=== PATIENT | female | born 1935 | race Caucasian/White ===

== ENCOUNTER 2017-01-04 13:27 | Observation (INO) | payer MEDICARE, OTHER ==
[2017-01-04] VITALS (9 sets, daily range): BP systolic 114–171; BP diastolic 41–76; PULSE 62–78; RESP 16–22; Ht 149.9 cm; Wt 58.4 kg
[~2017-01-04] VITALS: Ht 149.9 cm; Wt 58.4 kg
[~2017-01-04 13:27] MED LIST: AMLO5TAB4 PO; ASPI-664 PO; CARV12.598 PO; LISI30TA47 PO
[2017-01-04] MEDS ORDERED: NACL 0.9% 3 ML SYG IV SCH (16:30)
[2017-01-04] MEDS ORDERED: CEFAZOLIN 2 GM/50 ML (PMX) 50 ML IVPB PRN (17:00)
[2017-01-04] MEDS ORDERED: CEFAZOLIN 2 GM in SOD CHLORIDE 0.9% 50 ML IVPB ONE (17:00)
--- NOTE | 2017-01-04 17:07 | HP ---
Date/Time of Note Date/Time of Note DATE: 01/04/17 TIME: 17:03 Assessment/Plan VTE Prophylaxis VTE Prophylaxis Intervention: SCD's Lines/Catheters IV [facility]from [facility] Saline Lock Assessment/Plan Assessment/Plan 81 yo F with dysphagia from prior strokes with resultant PEG placement. 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 Pt had a PEG which became dislodged within the past 6 mos. PEG was pulled and patient was transiently on TPN. This past Monday pt had a PEG placed endoscopically. Procedure course uncomplicated. Last night pt's daughter/ caregiver noticed some fullness at the top of PEG site concerning for balloon translocation. This morning she noticed the balloon partially visualized. No PEG malfunction appreciated, no drainage from PEG site. pt aphasic thus unable to provide PMHx, PSHx, Soc Hx, ROS, Fam Hx PMH/Family/Social Social History Smoking Status: Never smoker Exam/Review of Systems Vital Signs Vitals Vital Signs Date Time Temp Pulse Resp B/P Pulse Ox O2 Delivery O2 Flow Rate FiO2 01/04/17 15:11 98.1 61 18 154/57 94 Exam Exam nad, aphasic MMM EOMI lungs clear no mrg abd with PEG tube with partially exposed balloon, no surrounding drainage or purulence no rashes no edema Medications Medications Current Medications Enoxaparin Sodium (Lovenox) 40 mg DAILY SC ; Start 01/05/17 at 09:00 Amlodipine Besylate (Norvasc) 5 mg DAILY PO ; Start 01/05/17 at 09:00 Aspirin (Halfprin) 81 mg DAILY PO ; Start 01/05/17 at 09:00 Carvedilol (Coreg) 12.5 mg BID PO ; Start 01/04/17 at 21:00 Lisinopril 30 mg 30 mg DAILY PO ; Start 01/05/17 at 09:00 Cefazolin Sodium/ Dextrose (Ancef 2 Gm/50 ml (Pmx)) 50 ml @ 100 mls/hr OC PRN IVPB ONCALL TO GI LAB; Start 01/04/17 at 17:00; Stop 01/05/17 at 16:59 SCAR GRIGGS MD Jan 04, 2017 17:07
[2017-01-04] MEDS ORDERED: PROPOFOL 20 ML ONE (18:00)
[2017-01-04] MEDS ORDERED: hydrALAzine 20 MG INJ IV PRN (18:00)
[2017-01-04] MEDS ORDERED: LABETALOL HCL 20MG INJ IV PRN (18:00)
--- NOTE | 2017-01-04 18:16 | OPPN ---
Date/Time of Note Date/Time of Note DATE: 01/04/17 TIME: 18:09 Proc Note GI Procedure Date 01/04/17 Pre-procedure Diagnosis * Malfunctioning GT Post-procedure Diagnosis Impression: * Old GT almost completely out, not salvageable * Uneventful new PEG. Fr#20 GT Plan: * Restart feedings * Ostomy care to closure of previous GT site . Procedure Performed: Other (EGD + PEG) Surgeon HÉCTOR BRYANT MD Coat Maker none Anesthesia Type: MAC Anesthesiologist: FABIO HORN MD Tourniquet Time none EBL none Transfusion required none Biopsy 1: none Grafts/Implants none Tubes/Drains none Complication(s) none Pt Condition post procedure: stable Disposition: PACU Indications: other (malfunctioning GT) Procedure Description After informed consent, with the patient/relatives understanding the procedure, its indications, potential risks and complications, including but not limited to : Allergic reaction, bleeding, perforation or infection, and all after all pertinent questions were answered to the patient's satisfaction, patient/ relative signed witnessed informed consent. Following this, premedication was administered slowly IV push under care of cardiovascular respiratory monitoring with pulse oximetry, and automatic blood pressure, and patient monitor. Once to sedative effect was achieved the patient was placed in the left lateral decubitus, the panendoscope was introduced and advanced under visual control. Careful examination of the upper gastrointestinal tract, both on insertion as well as withdrawal of the instrument disclosed following findings: ESOPHAGUS: The mucosa of the entire esophagus was carefully examined and showed the following findings: [The mucosa appears within normal limits. There is no evidence of esophagitis, varices, neoplasm or stricture. No hiatal hernia identified.] Stomach: Upon entrance to the stomach air was insufflated, the gastric christy distended normally. The mucosa of the fundus, body and antrum of the stomach was carefully examined both head-on and on retroflexion, and showed the following findings: Old GT almost completely out of stomach in GT trach, not salvageable. Removed without problems. Otherwise the mucosa appears within normal limits with no abnormalities. There is no evidence of gastritis, ulcers or neoplasm.] Pylorus: The pylorus was carefully examined and showed the following findings: [The pylorus appears patent and within normal limits, with no evidence of gastric outlet obstruction.] Duodenum: The duodenal mucosa was carefully examined in the duodenal bulb as well as the second portion of the duodenum and showed the following findings: [The mucosa appears unremarkable with no evidence of duodenitis, ulcer or neoplasm.] The instrument was then brought back to the stomach and the anterior wall mid- body was identified by transillumination and "finger indentation", this area was then marked in the anterior wall of the abdomen, it was cleansed with Betadine and infiltrated with Xylocaine 1%. Following this a trocar needle was introduced into the gastric lumen under visual control with the endoscope, once in the gastric lumen a guide wire was advanced and secured with a polypectomy snare, at this point the endoscope was withdrawn bringing the guidewire out through the patient's mouth. Following this a Japanese #20 gastrostomy tube was introduced over the guidewire, with the Bismark-Shahid technique without difficulty , a small incision was performed in the skin to allow easy passage of the G-tube , once the position of the gastrostomy was confirmed, the external stopper and connectors were installed, and a clean dressing applied. The patient tolerated the procedure well and was transferred out of the endoscopy suite awake, and in good condition to continue recovery under observation, feedings will start in the next 12-24 hours and the discharge in the care will be instituted. Copies To: CC: HÉCTOR BRYANT MD, MORDO MD Jan 04, 2017 18:16
--- NOTE | 2017-01-04 18:27 | CONS ---
Date/Time of Note Date/Time of Note DATE: 01/04/17 TIME: 18:16 Assessment/Plan Assessment/Plan Additional Assessment/Plan Assessment: * Displaced gastrostomy tube/nonsalvageable * Dysphagia/enteral feedings required * Post CVA with expressive aphasia Plan: * Proceed with new PEG insertion and removal of old gastrostomy tube * Previews ostomy site care * CT abdomen to rule out wall abscess Consultation Date/Type/Reason Admit Date/Time Jan 04, 2017 at 14:26 Date of Consultation: Jan 04, 2017 Type of Consultation: GI Reason for Consultation Malfunctioning G-tube Hx of Present Illness 1-year-old female post CVA with expressive aphasia and G-tube dependent. Brought into the hospital with malfunctioning G-tube the G-tube has been replaced recently in an expanding ostomy site and the tube has migrated out and is currently in the GT track. It appears not salvageable. Options were reviewed with the patient's daughter and recommendation is to move all gastrostomy tube on the outside to heal and place new gastrostomy tube in a different site. The procedure was explained in detail to the patient's daughter POA including risks benefits and alternatives and she is agreeable to proceed. Unobtainable Past Medical History Post CVA/aphasia Gastrostomy tube dependent Past Surgical History Post PEG Family History Significant Family History: no pertinent family hx Social History Alcohol Use: none Smoking Status: Never smoker Drug Use: none Exam/Review of Systems Vital Signs Vitals Vital Signs Date Time Temp Pulse Resp B/P Pulse Ox O2 Delivery O2 Flow Rate FiO2 01/04/17 17:37 98.0 62 17 171/72 97 Room Air Exam PHYSICAL EXAMINATION: GENERAL: Well developed, well nourished, alert, expressive aphasia, in no acute distress SKIN: No lesions, no stigmata chronic liver disease, no evidence of bleeding diathesis LYMPHATIC: No palpable lymphadenopathy. HEAD: Normocephalic, atraumatic, no tenderness. EYES: Pupils equal reactive to light and accommodation, full extraocular movements, sclera clear, non-icteric, no discharge. EARS/NOSE AND THROAT: Ears normal, nose normal, oropharynx normal, oral membranes well hydrated without lesions. NECK: Supple, no masses, thyroid normal, JVP within normal limits, carotids normal without bruits. CHEST: Inspection within normal limits. CARDIOVASCULAR: Heart: Regular rate and rhythm, no murmurs, gallops or rubs. Peripheral pulses present within normal limits, no cyanosis, clubbing or edemas. No pulsatile abdominal mass RESPIRATORY: Lungs clear to auscultation and percussion, no wheezing, no rubs GASTROINTESTINAL AND LIVER: Abdomen: G-tube has migrated into the GT track and is not salvageable. Otherwise abdomen soft, non tenderness, non-distended, no hernias, no masses, no organomegaly, no ascites, no guarding, no rebound tenderness, normoactive bowel sounds. Rectal: Deferred. GENITOURINARY: [Female genitalia within normal limits.] Medications Medications Current Medications Enoxaparin Sodium (Lovenox) 40 mg DAILY SC ; Start 01/05/17 at 09:00 Amlodipine Besylate (Norvasc) 5 mg DAILY PO ; Start 01/05/17 at 09:00 Aspirin (Halfprin) 81 mg DAILY PO ; Start 01/05/17 at 09:00 Carvedilol (Coreg) 12.5 mg BID PO ; Start 01/04/17 at 21:00 Lisinopril 30 mg 30 mg DAILY PO ; Start 01/05/17 at 09:00 Cefazolin Sodium/ Dextrose (Ancef 2 Gm/50 ml (Pmx)) 50 ml @ 100 mls/hr OC PRN IVPB ONCALL TO GI LAB; Start 01/04/17 at 17:00; Stop 01/05/17 at 16:59 HÉCTOR BRYANT MD Jan 04, 2017 18:27
[2017-01-04] MEDS ORDERED: BARIUM SULF 2% 450 ML BTL (BERRY SMOOTHIE) PO ONE (18:30)
[2017-01-05] MEDS: CEFAZOLIN 1 GM/50 ML (PMX) 50 ML IVPB SCH ×3 (00:05→15:00)
[2017-01-05 02:03] VITALS: BP 145/66; RESP 18
[2017-01-05 07:52] VITALS: BP 137/64; RESP 20
[2017-01-05] MEDS ORDERED: ASPIRIN (EC) 81 MG TAB PO SCH (09:00)
[2017-01-05] MEDS ORDERED: LISINOPRIL 10 MG TAB PO SCH (09:00)
[2017-01-05] MEDS ORDERED: INFLUENZA VIRUS VACCINE 0.5 ML SYG IM* ONE (09:00)
[2017-01-05] MEDS ORDERED: AMLODIPINE 5 MG TAB PO SCH (09:00)
[2017-01-05] MEDS ORDERED: ENOXAPARIN 40 MG/0.4 ML SYG SC SCH (09:00)
[2017-01-05 11:20] LABS: CREATININE 0.59 mg/dl (0.44-1.00)
[2017-01-05] MEDS ORDERED: SOD CHLORIDE 0.9% 100 ML ONE (11:59)
[2017-01-05] MEDS ORDERED: IODIXANOL LOCM 100 ML BTL ONE (11:59)
[2017-01-05 14:00] VITALS: BP 164/69; RESP 16
--- NOTE | 2017-01-05 14:25 | RADRPT ---
PROCEDURE: CT Abdomen and Pelvis with contrast. CLINICAL INDICATION: Abdominal wall abscess. TECHNIQUE: Multiple contiguous axial CT images of the abdomen and pelvis were obtained following t he administration of 90 cc of Visipaque 320. Coronal and sagittal reconstructions were also perform ed. CTDIvol (mGy): 11.74; Total Exam DLP (mGy-cm): 628.31. One or more of the following dose reduction techniques were utilized: - Automated exposure control. - Adjustment of the mA and/or kV according to patient size. - Use of iterative reconstruction technique. COMPARISON: CT abdomen/pelvis 02/07/2013. FINDINGS: Limited imaging of the lower thorax demonstrates cardiomegaly with small bilateral pleural effusions and basilar atelectatic changes. The liver and spleen are homogeneous in enhancement. The gallbladder, pancreas and adrenal glands a re unremarkable. The kidneys are symmetric in size and enhancement. There is no hydronephrosis or abnormal perinephr ic inflammation. There are no ureteral stones. The abdominal aorta is normal in caliber. Atherosclerotic calcification is present. There is no meche aortic / retroperitoneal lymphadenopathy. An old percutaneous gastrostomy tube site is seen within the right paramidline abdominal wall. Soft tissue thickening and stranding within the immediate surrounding subcutaneous soft tissues is observ ed. A new percutaneous gastrostomy tube is in place within the left para midline upper abdominal wal l. The gastrostomy tube balloon is not flush against the abdominal wall, however located within the gastric lumen at the level of the antropyloric junction. The stomach is collapsed. The small intesti kirsten are unremarkable. Diverticulosis of the distal colon is observed. A moderate volume of stool is seen throughout the colon. The appendix is normal. There is no ascites. There is no free intra-abdom inal air or intra-abdominal fluid collection. The bladder, uterus and adnexa are unremarkable. There is no free pelvic fluid. There is no pelvic sidewall or inguinal lymphadenopathy. Old right inferior and superior pubic rami fractures are identified. Degenerative changes are seen t hroughout the spine. The abdominal wall is thin with considerable diastasis of the abdominis rectus muscles. IMPRESSION: Mild inflammatory changes of the old percutaneous gastrostomy tube tract of the right paramidline up per abdomen. There is no evidence of organized fluid collection surrounding the gastrostomy tube sit e. New percutaneous gastrostomy tube of the left paramidline upper abdomen. The balloon is located with in the gastric lumen at the level of the antropyloric junction. Diverticulosis. No evidence of diverticulitis. RPTAT: AAQQ .Chandrika Kelley MD, MD Date Time Electronically viewed and signed by .Chandrika Kelley MD, MD on 01/05/2017 14:24 .T/
--- NOTE | 2017-01-05 14:41 | PN ---
Date/Time of Note Date/Time of Note DATE: 01/05/17 TIME: 14:39 Assessment/Plan VTE Prophylaxis VTE Prophylaxis Intervention: SCD's Lines/Catheters IV Catheter Type (from Nrs): Saline Lock Urinary Cath still in place: No Assessment/Plan Assessment/Plan 81 yo F with dysphagia from prior strokes with resultant PEG placement transferred from OSH for dislodged PEG. PEG replaced 10.4. CT ordered by GI to eval for abscess from period PEG was dislodged likely dc in AM if ok with GI cont home meds GI to see for revision cont home meds likely dc after GI intervention thus pt admitted under observation status Subjective 24 Hr Interval Summary Free Text/Dictation PEG replaced yesterday by GI Exam/Review of Systems Vital Signs Vitals Vital Signs Date Time Temp Pulse Resp B/P Pulse Ox O2 Delivery O2 Flow Rate FiO2 01/05/17 07:52 98.1 79 20 137/64 95 01/04/17 18:36 Room Air Intake and Output 01/04/17 01/04/17 01/05/17 15:00 23:00 07:00 Intake Total 100 ml Balance 100 ml Exam nad no mrg lungs clear wearing abd binder no rashes Results Result Diagram: 01/05/17 1053 Results 24 hrs Laboratory Tests Test 01/05/17 10:53 Blood Urea Nitrogen 21 H Creatinine 0.59 Medications Medications Current Medications Enoxaparin Sodium (Lovenox) 40 mg DAILY SC ; Start 01/05/17 at 09:00 Amlodipine Besylate (Norvasc) 5 mg DAILY PO ; Start 01/05/17 at 09:00 Aspirin (Halfprin) 81 mg DAILY PO ; Start 01/05/17 at 09:00 Carvedilol (Coreg) 12.5 mg BID PO Last administered on 01/04/17t 21:01; Admin Dose 12.5 MG; Start 01/04/17 at 21:00 Lisinopril 30 mg 30 mg DAILY PO ; Start 01/05/17 at 09:00 Cefazolin Sodium/ Dextrose 50 ml @ 100 mls/hr OC PRN IVPB ONCALL TO GI LAB; Start 01/04/17 at 17:00; Stop 01/05/17 at 16:59 Cefazolin Sodium (Ancef 1 Gm/50 ml (Pmx)) 50 ml @ 100 mls/hr Q8 IVPB Last administered on 01/05/17t 06:11; Admin Dose 100 MLS/HR; Start 01/04/17 at 23:30 SCAR GRIGGS MD Jan 05, 2017 14:41
--- NOTE | 2017-01-05 15:59 | PDOCDIS ---
Discharge Instructions CONDITION Patient Condition: Stable HOME CARE INSTRUCTIONS: Special Diet: tube feeding FOLLOW UP/APPOINTMENTS Follow-up Plan Follow up with your regular doctor as scheduled. Here is the info for the parts manager/stomach doctor you saw in the hospital Dr Gregorio Greene Office Address [address] [address] Office SCAR GRIGGS MD Jan 05, 2017 15:59
--- NOTE | 2017-01-05 15:59 | DS ---
Date/Time of Note Date/Time of Note DATE: 01/05/17 TIME: 15:59 Discharge Summary Admission/Discharge Info Admit Date/Time Jan 04, 2017 at 14:26 Discharge Date/Time Discharge Diagnosis dislodged PEG tube Patient Condition: Stable Consults GI Procedures 10.4: EGD and PEG replacement done by GI. 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 Pt had a PEG which became dislodged within the past 6 mos. PEG was pulled and patient was transiently on TPN. This past Monday pt had a PEG placed endoscopically. Procedure course uncomplicated. Last night pt's daughter/ caregiver noticed some fullness at the top of PEG site concerning for balloon translocation. This morning she noticed the balloon partially visualized. No PEG malfunction appreciated, no drainage from PEG site. pt aphasic thus unable to provide PMHx, PSHx, Soc Hx, ROS, Fam Hx Hospital Course PEG replaced by GI. Feeds resumed. CT without abscess. Home Meds Reported Medications Amlodipine Besylate* (Norvasc*) 5 Mg Tablet, 5 MG PO DAILY, TAB 12/12/15 Carvedilol* (Coreg*) 12.5 Mg Tablet, 12.5 MG PO BID, #60 TAB 12/12/15 Aspirin* (Aspirin* EC) 81 Mg Tablet.dr, 81 MG PO DAILY, TAB 12/12/15 Lisinopril* (Lisinopril*) 30 Mg Tablet, 30 MG PO DAILY, #30 TAB 12/12/15 Follow-up Plan Follow up with your regular doctor as scheduled. Here is the info for the reservation manager/stomach doctor you saw in the hospital Dr Héctor Greene Office Address [id number] [address] Office Primary Care Provider Carolyn Moore Time spent on discharge: > 30 minutes Pending Labs Laboratory Tests Test 01/05/17 10:53 Blood Urea Nitrogen 21mg/dl (7-20) Creatinine 0.59mg/dl (0.44-1.00) Copies To: CC: HÉCTOR GREENE MD, ELLEN MD Jan 05, 2017 15:59
[2017-01-05] MEDS ORDERED: CEPH500C PO (16:23)
[2017-01-06] MEDS ORDERED: FURO-110 PO (17:02)
[2017-01-06] MEDS ORDERED: LISI20TA11 PO (17:02)
[2017-01-06] MEDS ORDERED: BUSP10TA2 PO (17:03)
[2017-01-06] MEDS ORDERED: OMEP20CA16 PO (17:03)
== END 2017-01-05 18:55 | disposition home or self-care (01) ==
LOC: INTOOBSV 14:26 → PP2 14:26
PROVIDERS: ADMIT Internal Medicine; ATTEND Internal Medicine
DX: K94.23 Gastrostomy malfunction (principal); T85.528A Displacement of other gastrointestinal prosthetic devices, implants and grafts, initial encounter; Y83.3 Surgical operation with formation of external stoma as the cause of abnormal reaction of the patient, or of later complication, without mention of misadventure at the time of the procedure; Y92.9 Unspecified place or not applicable; K57.90 Diverticulosis of intestine, part unspecified, without perforation or abscess without bleeding; I69.391 Dysphagia following cerebral infarction; I69.320 Aphasia following cerebral infarction; R13.10 Dysphagia, unspecified; Y73.3 Surgical instruments, materials and gastroenterology and urology devices (including sutures) associated with adverse incidents; Z23 Encounter for immunization
CPT/HCPCS: 43246; 74177; 82565; 84520; 90686; G0378; J0690; J1650; Q9967; 99217

== ENCOUNTER 2017-01-06 12:10 | Inpatient (IN) | payer MEDICARE, OTHER ==
[~2017-01-06] VITALS: Ht 144.8 cm; Wt 58.5 kg
[~2017-01-06 12:10] MED LIST changes: +CEPH500C PO
[2017-01-06] MEDS ORDERED: PIPER-TAZO 3.375 GM IV (PMX) 100 ML IVPB STA (16:48)
[2017-01-06] MEDS ORDERED: VANCOMYCIN 1 GM (PMX) 250 ML IVPB STA (16:48)
[2017-01-06] MEDS ORDERED: ONDANSETRON 4 MG INJ IV PRN (17:00)
[2017-01-06] MEDS ORDERED: ACETAMINOPHEN 325 MG TAB PO PRN (17:00)
[2017-01-06] MEDS ORDERED: LISI20TA11 PO (17:02)
[2017-01-06] MEDS ORDERED: FURO-110 PO (17:02)
[2017-01-06] MEDS ORDERED: OMEP20CA16 PO (17:03)
[2017-01-06] MEDS ORDERED: BUSP10TA2 PO (17:03)
--- NOTE | 2017-01-06 17:12 | HP ---
Date/Time of Note Date/Time of Note DATE: 01/06/17 TIME: 17:08 Assessment/Plan VTE Prophylaxis VTE Prophylaxis Intervention: SCD's Assessment/Plan Assessment/Plan 81 yo F with PEG for dysphagia from stoke here 10.4-5 for PEG replacement. Aperture from former PEG site with sanguinous drainage. PLAN GI and gen surg evals Suspect erythematous patch 2/2 irritation from previous PEG. 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 10.4 PEG pulled and new one placed endoscopically. Pt discharged 10.5 (yesterday). Today pt brought back in. Daughter states that she went to use new PEG this morning to give pt breakfast. Noted after she started pushing in AM tube feeds they appeared to be coming out of prior PEG opening. Thus she brought pt back to the ER. pt aphasic thus unable to provide PMHx, PSHx, Soc Hx, ROS, Fam Hx Exam/Review of Systems Vital Signs Vitals Vital Signs Date Time Temp Pulse Resp B/P Pulse Ox O2 Delivery O2 Flow Rate FiO2 01/06/17 12:13 99.1 79 14 130/60 96 Exam Exam nad EOMI MMM no mrg lungs clear abd with 2 cm aperture from previous PEG with 1 cm surrounding flat patch of erythema, mild dark sanguinous discharge from site no edema no rashes labs pending SCAR GRIGGS MD Jan 06, 2017 17:11
--- NOTE | 2017-01-06 17:28 | RADRPT ---
PROCEDURE: XR Chest. CLINICAL INDICATION: Abdominal pain. TECHNIQUE: Single frontal view. COMPARISON: 12/08/2013. FINDINGS: The lungs are clear. The heart is mildly enlarged. There is calcification in the aorta consistent with atherosclerosis. There is no pleural effusion or pneumothorax. There is an old healed fracture of the surgical neck of the right humerus with deformity. IMPRESSION: 1. Mild cardiomegaly. 2. Atherosclerosis. 3. Clear lungs. 4. Old healed fracture of the proximal right humerus. RPTAT: QQ .Marques Tuttle MD, MD Date Time Electronically viewed and signed by .Marques Tuttle MD, on 01/06/2017 17:28 .R/
[2017-01-06] MEDS ORDERED: NACL 0.9% 3 ML SYG IV SCH (17:30)
[2017-01-06 17:35] LABS: BASOPHILS % 0.6 % (0.0-2.0); EOSINOPHILS # 0.1 10^3/ul (0.0-0.5); EOSINOPHILS % 0.9 % (0.0-7.0); HEMATOCRIT 43.2 % (37.0-47.0); HEMOGLOBIN 14.5 g/dl (12.0-16.0); LYMPHOCYTES # 1.4 10^3/ul (0.8-2.9); LYMPHOCYTES % 19.7 % (15.0-51.0); MEAN CORPUSCULAR HEMOGLOBIN 33.3 pg (29.0-33.0); MEAN CORPUSCULAR HGB CONC 33.6 g/dl (32.0-37.0); MEAN CORPUSCULAR VOLUME 99.3 fl (82.0-101.0); MEAN PLATELET VOLUME 11.1 fl (7.4-10.4); MONOCYTE # 0.7 10^3/ul (0.3-0.9); MONOCYTES % 9.8 % (0.0-11.0); NEUTROPHIL # 4.7 10^3/ul (1.6-7.5); NEUTROPHILS % 68.7 % (39.0-77.0); PLATELET COUNT 184 10^3/UL (140-415); RED BLOOD COUNT 4.35 10^6/ul (4.20-5.40); RED CELL DISTRIBUTION WIDTH 12.9 % (11.5-14.5); WHITE BLOOD COUNT 6.9 10^3/ul (4.8-10.8)
[2017-01-06 17:48] LABS: ALBUMIN 4.1 g/dl (3.3-4.9); ALBUMIN/GLOBULIN RATIO 1.05; BILIRUBIN,INDIRECT 0.7 mg/dl (0-1.1); BILIRUBIN,TOTAL 0.7 mg/dl (0.2-1.3); CALCIUM 10.7 mg/dl (8.4-10.2); CREATININE 0.62 mg/dl (0.44-1.00); POTASSIUM 4.5 mmol/L (3.5-5.1)
--- NOTE | 2017-01-06 18:17 | ERA ---
ER Documentation Chief Complaint Date/Time DATE: 01/06/17 TIME: 18:14 Chief Complaint Milk coming out of old G-Tube hole with feeding. Reporting pain at site. HPI Patient is an 81-year-old female with stroke and hypertension who presents for a leaking G-tube. The patient had a G-tube placed prior and the "hole was too big". The G-tube was recently removed and a new G-tube was placed in a different location however there is still significant leakage from the old G- tube site. The patient has pain around the area and redness as well. The patient has had no fevers per the daughter. Upon review of old medical records this is the patient's seventh visit to the ER since 2012. Dr. Greene was the upholsterer inside involved in the case. ROS All systems reviewed and are negative except as per history of present illness. Medications Home Meds Reported Medications Furosemide* (Lasix*) 20 Mg Tablet, 20 MG PO DAILY, TAB 01/06/17 Lisinopril* (Lisinopril*) 20 Mg Tablet, 20 MG PO DAILY, #30 TAB 01/06/17 Amlodipine Besylate* (Norvasc*) 5 Mg Tablet, 5 MG PO DAILY, TAB 12/12/15 Carvedilol* (Coreg*) 12.5 Mg Tablet, 12.5 MG PO BID, #60 TAB 12/12/15 Aspirin* (Aspirin* EC) 81 Mg Tablet.dr, 81 MG PO DAILY, TAB 12/12/15 Discontinued Reported Medications Omeprazole* (Omeprazole*) 20 Mg Capsule.dr, 20 MG PO DAILY, #30 CAP 01/06/17 Buspirone Hcl* (Buspirone Hcl*) 10 Mg Tab, 15 MG PO QHS, TAB 01/06/17 Lisinopril* (Lisinopril*) 30 Mg Tablet, 30 MG PO DAILY, #30 TAB 12/12/15 Discontinued Scripts Cephalexin* (Cephalexin*) 500 Mg Capsule, 500 MG PO Q12 for 7 Days, #14 CAP Prov:SCAR GRIGGS MD 01/05/17 Allergies Allergies: Coded Allergies: No Known Drug Allergies (Verified Allergy, Unknown, 01/06/17) PMhx/Soc History of Surgery: Yes (gtube placement 2011 ) Anesthesia Reaction: No Hx Neurological Disorder: Yes (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 Neck: Full range of motion..~ No meningismus. Resp: Clear to auscultation bilaterally Cardio: Regular rate and rhythm, no murmurs Abd: Generalized tenderness to palpation with significant tenderness around the previous G-tube site, there is redness around the previous G-tube site was significant leakage Skin: Redness around the previous G-tube site which is actively leaking gastric fluid at this time Back: No midline or flank tenderness Ext: No cyanosis, or edema Neur: Awake but nonverbal at baseline Result Diagram: 01/06/17 1645 01/06/17 1645 Results 24 hrs Laboratory Tests Test 01/06/17 16:45 01/06/17 17:00 White Blood Count 6.910^3/ul Red Blood Count 4.3510^6/ul Hemoglobin 14.5g/dl Hematocrit 43.2% Mean Corpuscular Volume 99.3fl Mean Corpuscular Hemoglobin 33.3pg Mean Corpuscular Hemoglobin Concent 33.6g/dl Red Cell Distribution Width 12.9% Platelet Count 32946^3/UL Mean Platelet Volume 11.1fl Neutrophils % 68.7% Lymphocytes % 19.7% Monocytes % 9.8% Eosinophils % 0.9% Basophils % 0.6% Nucleated Red Blood Cells % 0.0/100WBC Neutrophils # 4.710^3/ul Lymphocytes # 1.410^3/ul Monocytes # 0.710^3/ul Eosinophils # 0.110^3/ul Basophils # 0.010^3/ul Nucleated Red Blood Cells # 0.010^3/ul Sodium Level 143mmol/L Potassium Level 4.5mmol/L Chloride Level 106mmol/L Carbon Dioxide Level 28mmol/L Anion Gap 14 Blood Urea Nitrogen 28mg/dl Creatinine 0.62mg/dl Glucose Level 100mg/dl Calcium Level 10.7mg/dl Total Bilirubin 0.7mg/dl Direct Bilirubin 0.00mg/dl Indirect Bilirubin 0.7mg/dl Aspartate Amino Transf (AST/SGOT) 31IU/L Alanine Aminotransferase (ALT/SGPT) 28IU/L Alkaline Phosphatase 91IU/L Total Protein 8.0g/dl Albumin 4.1g/dl Globulin 3.90g/dl Albumin/Globulin Ratio 1.05 Lipase 27U/L Lactic Acid Level 1.2mmol/L Current Medications Medications (Trade) Dose Ordered Sig/Laila Route PRN Reason Start Time Stop Time Status Last Admin Dose Admin Ondansetron HCl (Zofran Inj) 4 mg BRIDGE ORDER PRN IV NAUSEA AND/OR VOMITING 01/06/17 17:00 01/07/17 16:59 Acetaminophen 650 mg 650 mg ER BRIDGE PRN PO MILD PAIN/FEVER 01/06/17 17:00 01/07/17 16:59 Vancomycin HCl 250 ml @ 125 mls/hr ONCE STAT IVPB 01/06/17 16:48 01/06/17 18:47 Piperacillin Sod/ Tazobactam Sod (Zosyn 3.375gm/ 100 ml (Pmx)) 100 ml @ 200 mls/hr ONCE STAT IVPB 01/06/17 16:48 01/06/17 17:17 DC 01/06/17 17:22 IV Flush (NS 3 ml) 3 ml PER PROTOCOL IV 01/06/17 17:30 Amlodipine Besylate (Norvasc) 5 mg DAILY PO 01/07/17 09:00 UNV Aspirin (Halfprin) 81 mg DAILY PO 01/07/17 09:00 UNV Buspirone HCl (Buspar) 15 mg QHS PO 01/06/17 21:00 UNV Carvedilol (Coreg) 12.5 mg BID PO 01/06/17 21:00 UNV Furosemide (Lasix) 20 mg DAILY PO 01/07/17 09:00 UNV Lisinopril (Zestril) 20 mg DAILY PO 01/07/17 09:00 UNV Miscellaneous Information 20 mg DAILY PO 01/07/17 09:00 UNV Procedures/MDM EKG read by me: Rate/Rhythm: Regular rate and rhythm at a normal rate Intervals: Normal Impression: No evidence of ischemia or arrhythmia Chest x-ray shows clear lungs per radiology. Patient is an 81-year-old female who presents with cellulitis around a previous G-tube site. The patient also has significant G-tube site leakage likely given the size of the G-tube that was previously in place. Unfortunately when the patient is being fed to the new G-tube the feeds are coming out through the previous hole. I do believe there is a cellulitis as well but at this point I doubt sepsis. The patient was given broad-spectrum antibiotics and initial lactic acid was normal. The patient will be admitted to the care of Dr. Griggs from the panel team and Dr. Griggs is planning to consult Dr. Greene. The patient may require wound care while admitted to the hospital. Departure Diagnosis: Primary Impression: Cellulitis Qualified Code: L03.90 - Cellulitis, unspecified cellulitis site Additional Impression: Leaking percutaneous endoscopic gastrostomy (PEG) tube Condition: KHADRA Palencia MD Jan 06, 2017 18:17
[2017-01-06 19:03] VITALS: BP 151/70; RESP 18
[2017-01-06 20:00] VITALS: BP 146/63; RESP 20
[2017-01-06] MEDS ORDERED: BUSPIRONE 10 MG TAB PO SCH (21:00)
[2017-01-06 23:44] VITALS: Ht 144.8 cm; Wt 58.5 kg
[2017-01-07 01:48] VITALS: BP 139/62; RESP 20
[2017-01-07] MEDS ORDERED: LANSOPRAZOLE 30 MG CAP GTB SCH (06:00)
[2017-01-07] MEDS ORDERED: PANTOPRAZOLE (EC) 40 MG TAB PO SCH (06:00)
[2017-01-07 08:10] VITALS: BP 146/64; RESP 20
[2017-01-07] MEDS ORDERED: NON-FORMULARY/PATIENT OWN MED (Omeprazole* 20 MG) PO SCH (09:00)
[2017-01-07] MEDS: AMLODIPINE 5 MG TAB PO SCH (10:11)
[2017-01-07] MEDS: FUROSEMIDE 20 MG TAB PO SCH (10:11)
[2017-01-07] MEDS: LISINOPRIL 20 MG TAB PO SCH (10:12)
[2017-01-07] MEDS: ASPIRIN (EC) 81 MG TAB PO SCH (10:13)
--- NOTE | 2017-01-07 11:19 | CONS ---
Date/Time of Note Date/Time of Note DATE: 01/07/17 TIME: 11:14 Assessment/Plan Assessment/Plan Additional Assessment/Plan Assessment: Post removal of malfunctioning gastrostomy tube Persistent leakage from ostomy site Probably mild local cellulitis Post placement of new gastrostomy tube History of CVA Expressive aphasia Dysphagia/GT enteral nutrition dependent Plan: Continue present regimen with enteral feedings at a continuous rate Add Reglan to improve gastric emptying Continue observation if no closure by Monday consider surgical approach Subjective: Course reviewed with nursing staff Patient interviewed and examined All labs, imaging and other results reviewed The patient feels well Leakage appears to be decreasing somewhat The ostomy site also appears to be closing We will continue present regimen with continuous enteral feeding at a low rate We will add Reglan to improve gastric emptying Exam: General: well developed, well nourished, alert and oriented x3 , in no acute distress Skin: No lesions, no stigmata chronic liver disease, no evidence of bleeding diathesis Lymphatic: No palpable lymphadenopathy HEENT: No lesions Cardiovascular: Heart: Regular rate and rhythm, no murmurs, gallops or rubs. Peripheral pulses present within normal limits, no cyanosis, clubbing or edemas. No pulsatile abdominal mass Respiratory: Lungs clear to auscultation and percussion, no wheezing, no rubs Gastrointestinal and Liver: Abdomen: Old ostomy site improving comparison to previous evaluation. New GT in place and in good condition. Abdomen soft, non tender, non-distended, no hernias, no masses, no organomegaly, no ascites, no guarding, no rebound tenderness, normoactive bowel sounds. Extremities: No cyanosis, clubbing, or edema. Diagnostic Studies: Available data and images were reviewed personally. See reports. Significant results and findings are addressed here or in the assessment and plan. Consultation Date/Type/Reason Admit Date/Time Social History Smoking Status: Never smoker Exam/Review of Systems Vital Signs Vitals Vital Signs Date Time Temp Pulse Resp B/P Pulse Ox O2 Delivery O2 Flow Rate FiO2 01/07/17 08:10 97.7 74 20 146/64 97 Results Result Diagram: 01/06/17 1645 01/06/17 1645 Results 24 hrs Laboratory Tests Test 01/06/17 16:45 01/06/17 17:00 01/06/17 20:10 01/06/17 22:38 White Blood Count 6.9 Red Blood Count 4.35 Hemoglobin 14.5 Hematocrit 43.2 Mean Corpuscular Volume 99.3 Mean Corpuscular Hemoglobin 33.3 H Mean Corpuscular Hemoglobin Concent 33.6 Red Cell Distribution Width 12.9 Platelet Count 184 Mean Platelet Volume 11.1 H Neutrophils % 68.7 Lymphocytes % 19.7 Monocytes % 9.8 Eosinophils % 0.9 Basophils % 0.6 Nucleated Red Blood Cells % 0.0 Neutrophils # 4.7 Lymphocytes # 1.4 Monocytes # 0.7 Eosinophils # 0.1 Basophils # 0.0 Nucleated Red Blood Cells # 0.0 Sodium Level 143 Potassium Level 4.5 Chloride Level 106 Carbon Dioxide Level 28 Anion Gap 14 Blood Urea Nitrogen 28 H Creatinine 0.62 Glucose Level 100 Calcium Level 10.7 H Total Bilirubin 0.7 Direct Bilirubin 0.00 Indirect Bilirubin 0.7 Aspartate Amino Transf (AST/SGOT) 31 Alanine Aminotransferase (ALT/SGPT) 28 Alkaline Phosphatase 91 Total Protein 8.0 Albumin 4.1 Globulin 3.90 H Albumin/Globulin Ratio 1.05 Lipase 27 Lactic Acid Level 1.2 0.8 0.7 Medications Medications Current Medications Amlodipine Besylate (Norvasc) 5 mg DAILY PO Last administered on 01/07/17 10: 11; Admin Dose 5 MG; Start 01/07/17 at 09:00 Aspirin (Halfprin) 81 mg DAILY PO Last administered on 01/07/17 10:13; Admin Dose 81 MG; Start 01/07/17 at 09:00 Buspirone HCl (Buspar) 15 mg QHS PO ; Start 01/06/17 at 21:00 Carvedilol (Coreg) 12.5 mg BID PO Last administered on 01/07/17 10:12; Admin Dose 12.5 MG; Start 01/06/17 at 21:00 Furosemide (Lasix) 20 mg DAILY PO Last administered on 01/07/17 10:11; Admin Dose 20 MG; Start 01/07/17 at 09:00 Lisinopril (Zestril) 20 mg DAILY PO Last administered on 01/07/17 10:12; Admin Dose 20 MG; Start 01/07/17 at 09:00 Lansoprazole (Prevacid) 30 mg DAILY@06 GTB Last administered on 01/07/17 06:26 ; Admin Dose 30 MG; Start 01/07/17 at 06:00 HÉCTOR BRYANT MD Jan 07, 2017 11:19
--- NOTE | 2017-01-07 11:36 | PN ---
Date/Time of Note Date/Time of Note DATE: 01/07/17 TIME: 11:33 Assessment/Plan VTE Prophylaxis VTE Prophylaxis Intervention: SCD's Lines/Catheters IV [facility] Saline Lock Urinary Cath still in place: No Assessment/Plan Assessment/Plan 81 yo F with PEG for dysphagia from stoke here 10.4-5 for PEG replacement. Aperture from former PEG site with sanguinous drainage. PLAN GI following gen surg eval pending Suspect erythematous patch 2/2 irritation from previous PEG. Cont Keflex, no compelling indication for broader abx at this time cont home meds Subjective 24 Hr Interval Summary Free Text/Dictation Per nurse, tube feeds still leaking out of previous PEG aperture Exam/Review of Systems Vital Signs Vitals Vital Signs Date Time Temp Pulse Resp B/P Pulse Ox O2 Delivery O2 Flow Rate FiO2 01/07/17 08:10 97.7 74 20 146/64 97 Exam nad no mrg lungs clear new PEG in place, old PEG aperture unchanged from yesterday no rashes no edema Results Result Diagram: 01/06/17 1645 01/06/17 1645 Results 24 hrs Laboratory Tests Test 01/06/17 16:45 01/06/17 17:00 01/06/17 20:10 01/06/17 22:38 White Blood Count 6.9 Red Blood Count 4.35 Hemoglobin 14.5 Hematocrit 43.2 Mean Corpuscular Volume 99.3 Mean Corpuscular Hemoglobin 33.3 H Mean Corpuscular Hemoglobin Concent 33.6 Red Cell Distribution Width 12.9 Platelet Count 184 Mean Platelet Volume 11.1 H Neutrophils % 68.7 Lymphocytes % 19.7 Monocytes % 9.8 Eosinophils % 0.9 Basophils % 0.6 Nucleated Red Blood Cells % 0.0 Neutrophils # 4.7 Lymphocytes # 1.4 Monocytes # 0.7 Eosinophils # 0.1 Basophils # 0.0 Nucleated Red Blood Cells # 0.0 Sodium Level 143 Potassium Level 4.5 Chloride Level 106 Carbon Dioxide Level 28 Anion Gap 14 Blood Urea Nitrogen 28 H Creatinine 0.62 Glucose Level 100 Calcium Level 10.7 H Total Bilirubin 0.7 Direct Bilirubin 0.00 Indirect Bilirubin 0.7 Aspartate Amino Transf (AST/SGOT) 31 Alanine Aminotransferase (ALT/SGPT) 28 Alkaline Phosphatase 91 Total Protein 8.0 Albumin 4.1 Globulin 3.90 H Albumin/Globulin Ratio 1.05 Lipase 27 Lactic Acid Level 1.2 0.8 0.7 Medications Medications Current Medications Amlodipine Besylate (Norvasc) 5 mg DAILY PO Last administered on 01/07/17 10: 11; Admin Dose 5 MG; Start 01/07/17 at 09:00 Aspirin (Halfprin) 81 mg DAILY PO Last administered on 01/07/17 10:13; Admin Dose 81 MG; Start 01/07/17 at 09:00 Buspirone HCl (Buspar) 15 mg QHS PO ; Start 01/06/17 at 21:00 Carvedilol (Coreg) 12.5 mg BID PO Last administered on 01/07/17 10:12; Admin Dose 12.5 MG; Start 01/06/17 at 21:00 Furosemide (Lasix) 20 mg DAILY PO Last administered on 01/07/17 10:11; Admin Dose 20 MG; Start 01/07/17 at 09:00 Lisinopril (Zestril) 20 mg DAILY PO Last administered on 01/07/17 10:12; Admin Dose 20 MG; Start 01/07/17 at 09:00 Lansoprazole (Prevacid) 30 mg DAILY@06 GTB Last administered on 01/07/17 06:26 ; Admin Dose 30 MG; Start 01/07/17 at 06:00 Metoclopramide HCl (Reglan) 10 mg Q6 IV ; Start 01/07/17 at 12:00 SCAR GRIGGS MD Jan 07, 2017 11:36
[2017-01-07] MEDS: METOCLOPRAMIDE 10 MG INJ IV SCH ×2 (12:42→18:19)
[2017-01-07 14:06] VITALS: BP 138/60; RESP 18
--- NOTE | 2017-01-07 19:47 | CONS ---
Date/Time of Note Date/Time of Note DATE: 01/07/17 TIME: 19:28 Assessment/Plan Assessment/Plan Chief Complaint/Hosp Course 1. Leaking GCF: minimal drainage with continuous feeding; stoma decreasing in size -continuous tf instead of bolus feeding from now. -may consider surgical closure if does not improve however, appears to be closing with minimal drainage 2. Peristomal maceration -local care for stoma 3. Dysphagia with TF -as above -aspiration precautions 4. History of cva -supportive and medical optimization Thank you. Patient seen and examined in collaboration with Dr. Darvin Alfaro. Problems: Consultation Date/Type/Reason Admit Date/Time Date of Consultation: Jan 07, 2017 Type of Consultation: Surgical Reason for Consultation Leaking GCF Referring Provider: SCAR GRIGGS MD Hx of Present Illness Sarah Barth is an 81 yo woman with multiple comorbidities, particularly dysphagia with PEG placement. She was recently admitted for dislodged PEG. On January 04 she had a new PEG placed endoscopically. After discharge however, she was brought back to the ED due to a large leak from the previous gastrocutaneous fistula. The leak occurred after her regular bolus feeding in the morning. There were no reports of fevers, chills, sob, congested cough, vomiting, diarrhea, dysuria, abdominal pain. General surgery was asked to evaluate. Constitutional: No chills, No febrile Eyes: No visual change ENT: No congestion Respiratory: No cough, No shortness of breath Cardiovascular: No chest pain Gastrointestinal: other (as above), No vomiting Genitourinary: No dysuria Musculoskeletal: No back pain Skin: No bruising, No rash Neurologic: No focal-weakness Endocrine: No polyuria Psychological: No anxiety, No confusion Past Medical History CVA DYSPHAGIA Past Surgical History peg placement x3 Family History Significant Family History: no pertinent family hx Social History Alcohol Use: none Smoking Status: Never smoker Drug Use: none Exam/Review of Systems Vital Signs Vitals Vital Signs Date Time Temp Pulse Resp B/P Pulse Ox O2 Delivery O2 Flow Rate FiO2 01/07/17 14:06 98.1 72 18 138/60 96 Exam Constitutional: alert, other (nonverbal, tracks) Psych: nl mood/affect Head: atraumatic, normocephalic Eyes: nl lids, nl sclera ENMT: mucosa pink and moist, nl nasal mucosa & septum Neck: non-tender, supple Respiratory: normal air movement Cardiovascular: regular rate and rhythm Gastrointestinal: non-tender, other (previous gcf with min drainage (non-milky) ; peristoma with erythema and macerated skin; peg), soft Genitourinary - Female: nl external genitalia Musculoskeletal: nl extremities to inspection Extremities: normal pulses Neurological: No nl strength (right sided weakness) Skin: other Results Result Diagram: 01/06/17 1645 01/06/17 1645 Results 24 hrs Laboratory Tests Test 01/06/17 20:10 01/06/17 22:38 Lactic Acid Level 0.8 0.7 Medications Medications Current Medications Amlodipine Besylate (Norvasc) 5 mg DAILY PO Last administered on 01/07/17 10: 11; Admin Dose 5 MG; Start 01/07/17 at 09:00 Aspirin (Halfprin) 81 mg DAILY PO Last administered on 01/07/17 10:13; Admin Dose 81 MG; Start 01/07/17 at 09:00 Carvedilol (Coreg) 12.5 mg BID PO Last administered on 01/07/17 10:12; Admin Dose 12.5 MG; Start 01/06/17 at 21:00 Furosemide (Lasix) 20 mg DAILY PO Last administered on 01/07/17 10:11; Admin Dose 20 MG; Start 01/07/17 at 09:00 Lisinopril (Zestril) 20 mg DAILY PO Last administered on 01/07/17 10:12; Admin Dose 20 MG; Start 01/07/17 at 09:00 Metoclopramide HCl (Reglan) 10 mg Q6 IV Last administered on 01/07/17 18:19; Admin Dose 10 MG; Start 01/07/17 at 12:00 OMID VACA NP Jan 07, 2017 19:38
[2017-01-07 20:44] VITALS: BP 156/72; RESP 16
[2017-01-07 22:25] VITALS: BP 149/73; RESP 16
[2017-01-08] MEDS: METOCLOPRAMIDE 10 MG INJ IV SCH ×4 (00:02→17:49)
[2017-01-08 02:31] VITALS: BP 131/63; RESP 16
[2017-01-08 05:23] LABS: BASOPHILS % 0.9 % (0.0-2.0); EOSINOPHILS # 0.1 10^3/ul (0.0-0.5); HEMATOCRIT 33.5 % (37.0-47.0); HEMOGLOBIN 11.1 g/dl (12.0-16.0); LYMPHOCYTES # 1.3 10^3/ul (0.8-2.9); MEAN CORPUSCULAR HEMOGLOBIN 32.8 pg (29.0-33.0); MEAN CORPUSCULAR HGB CONC 33.1 g/dl (32.0-37.0); MEAN CORPUSCULAR VOLUME 99.1 fl (82.0-101.0); MEAN PLATELET VOLUME 10.6 fl (7.4-10.4); MONOCYTE # 0.5 10^3/ul (0.3-0.9); MONOCYTES % 10.5 % (0.0-11.0); NEUTROPHIL # 2.7 10^3/ul (1.6-7.5); NEUTROPHILS % 58.2 % (39.0-77.0); PLATELET COUNT 160 10^3/UL (140-415); RED BLOOD COUNT 3.38 10^6/ul (4.20-5.40); WHITE BLOOD COUNT 4.7 10^3/ul (4.8-10.8)
[2017-01-08 05:51] LABS: CALCIUM 9.6 mg/dl (8.4-10.2); CREATININE 0.62 mg/dl (0.44-1.00); POTASSIUM 3.7 mmol/L (3.5-5.1)
[2017-01-08 07:35] VITALS: BP 136/63; RESP 18
[2017-01-08] MEDS: ASPIRIN (EC) 81 MG TAB PO SCH (09:23)
[2017-01-08] MEDS: FUROSEMIDE 20 MG TAB PO SCH (09:24)
[2017-01-08] MEDS: AMLODIPINE 5 MG TAB PO SCH (09:25)
[2017-01-08] MEDS: LISINOPRIL 20 MG TAB PO SCH (09:25)
--- NOTE | 2017-01-08 13:44 | PN ---
Date/Time of Note Date/Time of Note DATE: 01/08/17 TIME: 13:42 Assessment/Plan VTE Prophylaxis VTE Prophylaxis Intervention: SCD's Lines/Catheters IV Catheter Type (from [facility]): Saline Lock Urinary Cath still in place: No Assessment/Plan Assessment/Plan 81 yo F with PEG for dysphagia from stoke here 10.4-5 for PEG replacement. Aperture from former PEG site with sanguinous drainage now improving/closing up on its own. PLAN GI and gen surg following Suspect erythematous patch 2/2 irritation from previous PEG. Cont Keflex, no compelling indication for broader abx at this time cont home meds dc when ok'd by consultants Subjective 24 Hr Interval Summary Free Text/Dictation Pt daughter and nurse all affirm tube feeds now working well through new PEG. Aperture continues to get smaller Exam/Review of Systems Vital Signs Vitals Vital Signs Date Time Temp Pulse Resp B/P Pulse Ox O2 Delivery O2 Flow Rate FiO2 01/08/17 07:35 97.9 64 18 136/63 94 Intake and Output 01/07/17 01/07/17 01/08/17 15:00 23:00 07:00 Output Total 200 ml Balance -200 ml Exam nad no mrg lungs clear abd soft no rashes previous PEG site continues to get smaller, minimal dark drainage appreciated Results Result Diagram: 01/08/17 0502 01/08/17 0502 Results 24 hrs Laboratory Tests Test 01/08/17 05:02 White Blood Count 4.7 #L Red Blood Count 3.38 #L Hemoglobin 11.1 #L Hematocrit 33.5 #L Mean Corpuscular Volume 99.1 Mean Corpuscular Hemoglobin 32.8 Mean Corpuscular Hemoglobin Concent 33.1 Red Cell Distribution Width 13.0 Platelet Count 160 Mean Platelet Volume 10.6 H Neutrophils % 58.2 Lymphocytes % 27.0 Monocytes % 10.5 Eosinophils % 3.0 Basophils % 0.9 Nucleated Red Blood Cells % 0.0 Neutrophils # 2.7 Lymphocytes # 1.3 Monocytes # 0.5 Eosinophils # 0.1 Basophils # 0.0 Nucleated Red Blood Cells # 0.0 Sodium Level 143 Potassium Level 3.7 Chloride Level 110 Carbon Dioxide Level 30 Anion Gap 7 L Blood Urea Nitrogen 28 H Creatinine 0.62 Glucose Level 113 Calcium Level 9.6 Medications Medications Current Medications Amlodipine Besylate (Norvasc) 5 mg DAILY PO Last administered on 01/08/17 09: 25; Admin Dose 5 MG; Start 01/07/17 at 09:00 Aspirin (Halfprin) 81 mg DAILY PO Last administered on 01/08/17 09:23; Admin Dose 81 MG; Start 01/07/17 at 09:00 Carvedilol (Coreg) 12.5 mg BID PO Last administered on 01/08/17 09:23; Admin Dose 12.5 MG; Start 01/06/17 at 21:00 Furosemide (Lasix) 20 mg DAILY PO Last administered on 01/08/17 09:24; Admin Dose 20 MG; Start 01/07/17 at 09:00 Lisinopril (Zestril) 20 mg DAILY PO Last administered on 01/08/17 09:25; Admin Dose 20 MG; Start 01/07/17 at 09:00 Metoclopramide HCl (Reglan) 10 mg Q6 IV Last administered on 01/08/17 12:38; Admin Dose 10 MG; Start 01/07/17 at 12:00 SCAR GRIGGS MD Jan 08, 2017 13:44
--- NOTE | 2017-01-08 14:00 | PN ---
Date/Time of Note Date/Time of Note DATE: 01/08/17 TIME: 13:55 Assessment/Plan VTE Prophylaxis VTE Prophylaxis Intervention: SCD's Lines/Catheters IV C[facility]ter Type (from [facility] Saline Lock Urinary Cath still in place: No Assessment/Plan Chief Complaint/Hosp Course Assessment: Post removal of malfunctioning gastrostomy tube Persistent leakage from ostomy site/significant improvement Probably mild local cellulitis/improved Post placement of new gastrostomy tube History of CVA Expressive aphasia Dysphagia/GT enteral nutrition dependent Plan: Continue present regimen with enteral feedings at a continuous rate Continue Reglan to improve gastric emptying Continue observation if no closure by Monday consider surgical approach Subjective: Course reviewed with nursing staff Patient interviewed and examined All labs, imaging and other results reviewed The patient appears comfortable Old ostomy site leakage has substantially decreased Old ostomy site appears to be healing nicely We will continue present regimen until complete closure and then may go back to bolus feeding at home Exam: General: well developed, well nourished, alert and oriented x3 , in no acute distress Skin: No lesions, no stigmata chronic liver disease, no evidence of bleeding diathesis Lymphatic: No palpable lymphadenopathy HEENT: No lesions Cardiovascular: Heart: Regular rate and rhythm, no murmurs, gallops or rubs. Peripheral pulses present within normal limits, no cyanosis, clubbing or edemas. No pulsatile abdominal mass Respiratory: Lungs clear to auscultation and percussion, no wheezing, no rubs Gastrointestinal and Liver: Abdomen: Old ostomy site improved. New GT in place. Abdomen soft, non tenderness, not distended, no hernias, no masses, no organomegaly, no ascites, no guarding, no rebound tenderness, normoactive bowel sounds. Extremities: No cyanosis, clubbing, or edema. Diagnostic Studies: Available data and images were reviewed personally. See reports. Significant results and findings are addressed here or in the assessment and plan. Problems: Exam/Review of Systems Vital Signs Vitals Vital Signs Date Time Temp Pulse Resp B/P Pulse Ox O2 Delivery O2 Flow Rate FiO2 01/08/17 07:35 97.9 64 18 136/63 94 Intake and Output 01/07/17 01/07/17 01/08/17 15:00 23:00 07:00 Output Total 200 ml Balance -200 ml Results Result Diagram: 01/08/17 0502 01/08/17 0502 Results 24 hrs Laboratory Tests Test 01/08/17 05:02 White Blood Count 4.7 #L Red Blood Count 3.38 #L Hemoglobin 11.1 #L Hematocrit 33.5 #L Mean Corpuscular Volume 99.1 Mean Corpuscular Hemoglobin 32.8 Mean Corpuscular Hemoglobin Concent 33.1 Red Cell Distribution Width 13.0 Platelet Count 160 Mean Platelet Volume 10.6 H Neutrophils % 58.2 Lymphocytes % 27.0 Monocytes % 10.5 Eosinophils % 3.0 Basophils % 0.9 Nucleated Red Blood Cells % 0.0 Neutrophils # 2.7 Lymphocytes # 1.3 Monocytes # 0.5 Eosinophils # 0.1 Basophils # 0.0 Nucleated Red Blood Cells # 0.0 Sodium Level 143 Potassium Level 3.7 Chloride Level 110 Carbon Dioxide Level 30 Anion Gap 7 L Blood Urea Nitrogen 28 H Creatinine 0.62 Glucose Level 113 Calcium Level 9.6 Medications Medications Current Medications Amlodipine Besylate (Norvasc) 5 mg DAILY PO Last administered on 01/08/17 09: 25; Admin Dose 5 MG; Start 01/07/17 at 09:00 Aspirin (Halfprin) 81 mg DAILY PO Last administered on 01/08/17 09:23; Admin Dose 81 MG; Start 01/07/17 at 09:00 Carvedilol (Coreg) 12.5 mg BID PO Last administered on 01/08/17 09:23; Admin Dose 12.5 MG; Start 01/06/17 at 21:00 Furosemide (Lasix) 20 mg DAILY PO Last administered on 01/08/17 09:24; Admin Dose 20 MG; Start 01/07/17 at 09:00 Lisinopril (Zestril) 20 mg DAILY PO Last administered on 01/08/17 09:25; Admin Dose 20 MG; Start 01/07/17 at 09:00 Metoclopramide HCl (Reglan) 10 mg Q6 IV Last administered on 01/08/17 12:38; Admin Dose 10 MG; Start 01/07/17 at 12:00 HÉCTOR BRYANT MD Jan 08, 2017 13:59
[2017-01-08 14:06] VITALS: BP 155/68; RESP 18
--- NOTE | 2017-01-08 15:02 | PN ---
Date/Time of Note Date/Time of Note DATE: 01/08/17 TIME: 14:58 Assessment/Plan Lines/Catheters IV Catheter Type (from [facility]): Saline Lock Odonnell in Place (from [facility]): No Assessment/Plan Chief Complaint/Hosp Course 1. Leaking GCF: minimal drainage with continuous feeding; stoma decreasing in size -continuous tf instead of bolus feeding from now. -no surgical intervention recommended at this time as stoma appears to be closing with minimal drainage; recommend continuos feeding at home and change to bolus feeding when GCF closed 2. Peristomal maceration: improved -local care for stoma 3. Dysphagia with TF -as above -aspiration precautions 4. History of cva -supportive and medical optimization Thank you. Patient seen and examined in collaboration with Dr. Darvin Alfaro. Problems: Subjective 24 Hr Interval Summary Feels well. Scant drainage from old peg site - continuing to heal well. Tolerating continuous feeds. No fevers, chills, sob, congested cough, cp, palpitations, n/v/d/dysuria. Exam/Review of Systems Vital Signs Vitals Vital Signs Date Time Temp Pulse Resp B/P Pulse Ox O2 Delivery O2 Flow Rate FiO2 01/08/17 14:06 98.1 58 18 155/68 96 Intake and Output 01/07/17 01/07/17 01/08/17 15:00 23:00 07:00 Output Total 200 ml Balance -200 ml Exam Free Text/Dictation Constitutional: alert, other (nonverbal, tracks) Psych: nl mood/affect Head: atraumatic, normocephalic Eyes: nl lids, nl sclera ENMT: mucosa pink and moist, nl nasal mucosa & septum Neck: non-tender, supple Respiratory: normal air movement Cardiovascular: regular rate and rhythm Gastrointestinal: non-tender, other (previous gcf with scant drainage (non- milky); peristoma with erythema and macerated skin-improved with barrier cream; peg), soft Genitourinary - Female: nl external genitalia Musculoskeletal: nl extremities to inspection Extremities: normal pulses Neurological: No nl strength (right sided weakness) Results Result Diagram: 01/08/17 0502 01/08/17 0502 OMID VACA NP Jan 08, 2017 15:02
[2017-01-08 20:00] VITALS: BP 146/80; RESP 18
[2017-01-08 20:45] VITALS: BP 149/65; PULSE 59
[2017-01-09] MEDS: METOCLOPRAMIDE 10 MG INJ IV SCH ×4 (00:32→18:01)
[2017-01-09 02:00] VITALS: BP 131/60; RESP 16
[2017-01-09 07:38] VITALS: BP 151/86; RESP 18
[2017-01-09] MEDS: AMLODIPINE 5 MG TAB PO SCH (08:42)
[2017-01-09] MEDS: LISINOPRIL 20 MG TAB PO SCH (08:43)
[2017-01-09] MEDS: FUROSEMIDE 20 MG TAB PO SCH (08:44)
[2017-01-09] MEDS: ASPIRIN (EC) 81 MG TAB PO SCH (08:44)
--- NOTE | 2017-01-09 10:55 | PN ---
Date/Time of Note Date/Time of Note DATE: 01/09/17 TIME: 10:48 Assessment/Plan VTE Prophylaxis VTE Prophylaxis Intervention: SCD's Lines/Catheters IV Catheter Type (from [facility]): Saline Lock Urinary Cath still in place: No Assessment/Plan Chief Complaint/Hosp Course Assessment/Plan: 81 yo F with PEG for dysphagia from prior strokes, here for PEG replacement. Aperture from former PEG site with sanguinous drainage now improving/closing up on its own. PLAN GI and gen surg following Suspect erythematous patch 2/2 irritation from previous PEG. No compelling indication for broader abx at this time cont home meds, tube feedings through new G-tube. dc when ok'd by consultants Problems: Subjective 24 Hr Interval Summary Free Text/Dictation Seen by nutrition team this morning, no acute events overnight. Exam/Review of Systems Vital Signs Vitals Vital Signs Date Time Temp Pulse Resp B/P Pulse Ox O2 Delivery O2 Flow Rate FiO2 01/09/17 07:38 98.3 63 18 151/86 96 Intake and Output 01/08/17 01/08/17 01/09/17 15:00 23:00 07:00 Intake Total 360 ml Output Total 450 ml Balance 360 ml -450 ml Exam nad no mrg lungs clear abd soft no rashes previous PEG site continues to get smaller, minimal dark drainage appreciated Results Result Diagram: 01/08/17 0502 01/08/17 0502 Medications Medications Current Medications Amlodipine Besylate (Norvasc) 5 mg DAILY PO Last administered on 01/09/17 08: 42; Admin Dose 5 MG; Start 01/07/17 at 09:00 Aspirin (Halfprin) 81 mg DAILY PO Last administered on 01/09/17 08:44; Admin Dose 81 MG; Start 01/07/17 at 09:00 Carvedilol (Coreg) 12.5 mg BID PO Last administered on 01/09/17 08:43; Admin Dose 12.5 MG; Start 01/06/17 at 21:00 Furosemide (Lasix) 20 mg DAILY PO Last administered on 01/09/17 08:44; Admin Dose 20 MG; Start 01/07/17 at 09:00 Lisinopril (Zestril) 20 mg DAILY PO Last administered on 01/09/17 08:43; Admin Dose 20 MG; Start 01/07/17 at 09:00 Metoclopramide HCl (Reglan) 10 mg Q6 IV Last administered on 01/09/17t 05:38; Admin Dose 10 MG; Start 01/07/17 at 12:00 FELIPA LOPEZ Jan 09, 2017 10:55
[2017-01-09 14:05] VITALS: BP 153/67; RESP 18
--- NOTE | 2017-01-09 14:34 | PN ---
Date/Time of Note Date/Time of Note DATE: 01/09/17 TIME: 14:32 Assessment/Plan Lines/Catheters IV Catheter Type (from [facility]): Saline Lock Odonnell in Place (from [facility]): No Assessment/Plan Chief Complaint/Hosp Course 1. Leaking GCF: minimal drainage with continuous feeding; stoma decreasing in size -continuous tf instead of bolus feeding from now. -will do excisional debridement to help close gcf 2. Peristomal maceration: improved -local care for stoma 3. Dysphagia with TF -as above -aspiration precautions 4. History of cva -supportive and medical optimization Thank you. Patient seen and examined in collaboration with Dr. Darvin Alfaro. Problems: Subjective 24 Hr Interval Summary Min drainage from previous GCF site. Tolerating TF. No n/v/d/dysuria, fevers, chills, sob, congested cough. Peristomal skin of previous peg site improved. Exam/Review of Systems Vital Signs Vitals Vital Signs Date Time Temp Pulse Resp B/P Pulse Ox O2 Delivery O2 Flow Rate FiO2 01/09/17 14:05 97.6 54 18 153/67 97 Intake and Output 01/08/17 01/08/17 01/09/17 15:00 23:00 07:00 Intake Total 360 ml Output Total 450 ml Balance 360 ml -450 ml Exam Free Text/Dictation Constitutional: alert, other (nonverbal, tracks) Psych: nl mood/affect Head: atraumatic, normocephalic Eyes: nl lids, nl sclera ENMT: mucosa pink and moist, nl nasal mucosa & septum Neck: non-tender, supple Respiratory: normal air movement Cardiovascular: regular rate and rhythm Gastrointestinal: non-tender, other (previous gcf with scant drainage (non- milky); peristoma with erythema and macerated skin-improved with barrier cream; peg), soft Genitourinary - Female: nl external genitalia Musculoskeletal: nl extremities to inspection Extremities: normal pulses Neurological: No nl strength (right sided weakness) Results Result Diagram: 01/08/17 0502 01/08/17 050 OMID VACA NP Jan 09, 2017 14:34
[2017-01-09] MEDS ORDERED: SILVER NITRATE SWAB TOP ONE (16:00)
--- NOTE | 2017-01-09 16:50 | PN ---
Date/Time of Note Date/Time of Note DATE: 01/09/17 TIME: 16:43 Assessment/Plan VTE Prophylaxis VTE Prophylaxis Intervention: SCD's Lines/Catheters IV Catheter Type (from [facility]): Saline Lock Urinary Cath still in place: No Assessment/Plan Chief Complaint/Hosp Course Assessment: Post removal of malfunctioning gastrostomy tube Persistent leakage from ostomy site/ continues to improve Probably mild local cellulitis/ improved Post placement of new gastrostomy tube History of CVA Expressive aphasia Dysphagia/GT enteral nutrition dependent Plan: Old ostomy site continues to slowly heal- evaluated by surgery- surgical intervention NOT recommended Continue Reglan to improve gastric emptying Continue current regimen of enteral feedings (continuous rate) Patient seen in collaboration with Dr. Greene Subjective: Course reviewed with nursing staff Patient interviewed and examined All labs, imaging and other results reviewed The patient appears comfortable sitting up in chair Old ostomy site leakage continues to decrease Old ostomy site appears to be slowly healing and decreasing in size Evaluated by surgery- NO surgical intervention recommended We will continue present enteral feeding regimen until complete closure and then may go back to bolus feeding at home Exam: General: well developed, well nourished, alert and oriented x3 , in no acute distress Skin: No lesions, no stigmata chronic liver disease, no evidence of bleeding diathesis Lymphatic: No palpable lymphadenopathy HEENT: No lesions Cardiovascular: Heart: Regular rate and rhythm, no murmurs, gallops or rubs. Peripheral pulses present within normal limits, no cyanosis, clubbing or edemas. No pulsatile abdominal mass Respiratory: Lungs clear to auscultation and percussion, no wheezing, no rubs Gastrointestinal and Liver: Abdomen: Old ostomy site improved. New GT in place. Abdomen soft, non tenderness, not distended, no hernias, no masses, no organomegaly, no ascites, no guarding, no rebound tenderness, normoactive bowel sounds. Extremities: No cyanosis, clubbing, or edema. Diagnostic Studies: Available data and images were reviewed personally. See reports. Significant results and findings are addressed here or in the assessment and plan. Problems: Exam/Review of Systems Vital Signs Vitals Vital Signs Date Time Temp Pulse Resp B/P Pulse Ox O2 Delivery O2 Flow Rate FiO2 01/09/17 14:05 97.6 54 18 153/67 97 Intake and Output 01/08/17 01/08/17 01/09/17 15:00 23:00 07:00 Intake Total 360 ml Output Total 450 ml Balance 360 ml -450 ml Results Result Diagram: 01/08/17 0502 01/08/17 0502 Medications Medications Current Medications Amlodipine Besylate (Norvasc) 5 mg DAILY PO Last administered on 01/09/17 08: 42; Admin Dose 5 MG; Start 01/07/17 at 09:00 Aspirin (Halfprin) 81 mg DAILY PO Last administered on 01/09/17 08:44; Admin Dose 81 MG; Start 01/07/17 at 09:00 Carvedilol (Coreg) 12.5 mg BID PO Last administered on 01/09/17 08:43; Admin Dose 12.5 MG; Start 01/06/17 at 21:00 Furosemide (Lasix) 20 mg DAILY PO Last administered on 01/09/17 08:44; Admin Dose 20 MG; Start 01/07/17 at 09:00 Lisinopril (Zestril) 20 mg DAILY PO Last administered on 01/09/17 08:43; Admin Dose 20 MG; Start 01/07/17 at 09:00 Metoclopramide HCl (Reglan) 10 mg Q6 IV Last administered on 01/09/17 12:10; Admin Dose 10 MG; Start 01/07/17 at 12:00 JAVI GREER Jan 09, 2017 16:49
[2017-01-09 19:50] VITALS: BP 113/54; RESP 18
[2017-01-10] VITALS (8 sets, daily range): BP systolic 124–180; BP diastolic 60–78; PULSE 50–75; RESP 16–18
[2017-01-10] MEDS: METOCLOPRAMIDE 10 MG INJ IV SCH ×4 (00:27→17:30)
[2017-01-10] MEDS: ASPIRIN (EC) 81 MG TAB PO SCH (08:33)
[2017-01-10] MEDS: FUROSEMIDE 20 MG TAB PO SCH (08:33)
[2017-01-10] MEDS: LISINOPRIL 20 MG TAB PO SCH (08:34)
[2017-01-10] MEDS: AMLODIPINE 5 MG TAB PO SCH (08:34)
--- NOTE | 2017-01-10 10:12 | PN ---
Date/Time of Note Date/Time of Note DATE: 01/10/17 TIME: 10:10 Assessment/Plan VTE Prophylaxis VTE Prophylaxis Intervention: SCD's Lines/Catheters IV Catheter Type (from [facility]): Saline Lock Urinary Cath still in place: No Assessment/Plan Chief Complaint/Hosp Course Assessment/Plan: 81 yo F with PEG for dysphagia from prior strokes, here for PEG replacement. Aperture from former PEG site with sanguinous drainage now improving/closing up on its own. PLAN GI and gen surg following, for possible excisional debridement today, follow-up post procedure recommendations. Suspect erythematous patch 2/2 irritation from previous PEG. No compelling indication for broader abx at this time cont home meds, tube feedings through new G-tube. Patient will need pump for enteral feeds until the old G-tube site heals. dc when ok'd by consultants Problems: Subjective 24 Hr Interval Summary Free Text/Dictation Awaiting possible excisional debridement today. No acute events overnight, tolerating tube feeding. Exam/Review of Systems Vital Signs Vitals Vital Signs Date Time Temp Pulse Resp B/P Pulse Ox O2 Delivery O2 Flow Rate FiO2 01/10/17 07:47 97.8 58 18 163/70 97 Intake and Output 01/09/17 01/09/17 01/10/17 15:00 23:00 07:00 Intake Total 520 ml Balance 520 ml Exam nad no mrg lungs clear abd soft no rashes previous PEG site continues to get smaller, minimal dark drainage appreciated Results Result Diagram: 01/08/17 0502 01/08/17 0502 Medications Medications Current Medications Amlodipine Besylate (Norvasc) 5 mg DAILY PO Last administered on 01/10/17 08: 34; Admin Dose 5 MG; Start 01/07/17 at 09:00 Aspirin (Halfprin) 81 mg DAILY PO Last administered on 01/10/17 08:33; Admin Dose 81 MG; Start 01/07/17 at 09:00 Carvedilol (Coreg) 12.5 mg BID PO Last administered on 01/10/17 08:34; Admin Dose 12.5 MG; Start 01/06/17 at 21:00 Furosemide (Lasix) 20 mg DAILY PO Last administered on 01/10/17 08:33; Admin Dose 20 MG; Start 01/07/17 at 09:00 Lisinopril (Zestril) 20 mg DAILY PO Last administered on 01/10/17 08:34; Admin Dose 20 MG; Start 01/07/17 at 09:00 Metoclopramide HCl (Reglan) 10 mg Q6 IV Last administered on 01/10/17 06:14; Admin Dose 10 MG; Start 01/07/17 at 12:00 FELIPA LOPEZ Jan 10, 2017 10:12
--- NOTE | 2017-01-10 13:01 | PN ---
Date/Time of Note Date/Time of Note DATE: 01/10/17 TIME: 12:54 Assessment/Plan VTE Prophylaxis VTE Prophylaxis Intervention: SCD's Lines/Catheters IV Catheter Type (from [facility]): Saline Lock Urinary Cath still in place: No Assessment/Plan Chief Complaint/Hosp Course Assessment: Post removal of malfunctioning gastrostomy tube Persistent leakage from ostomy site Leakage during continuos tube feeding continues to improve Probably mild local cellulitis/ healing well Post placement of new gastrostomy tube History of CVA Expressive aphasia Dysphagia/GT enteral nutrition dependent Plan: Old ostomy site continues to slowly heal- plan of possible bedside debridement today Continue Reglan to improve gastric emptying Continue current regimen of enteral feedings (continuous rate) Leakage from previous ostomy site most pronounce during water bolus with pump/ instructed for RN to manually deliver water bolus Patient seen in collaboration with Dr. Greene Subjective: Course reviewed with nursing staff Patient interviewed and examined All labs, imaging and other results reviewed The patient appears well, resting in bed Old ostomy site leakage continues to decrease Old ostomy site appears to be slowly healing and decreasing in size Possible debridement today We will continue present enteral feeding regimen until complete closure and then may go back to bolus feeding at home Will need pump to deliver enteral feeding at home until site is completely healed Exam: General: well developed, well nourished, alert and oriented x3 , in no acute distress Skin: No lesions, no stigmata chronic liver disease, no evidence of bleeding diathesis Lymphatic: No palpable lymphadenopathy HEENT: No lesions Cardiovascular: Heart: Regular rate and rhythm, no murmurs, gallops or rubs. Peripheral pulses present within normal limits, no cyanosis, clubbing or edemas. No pulsatile abdominal mass Respiratory: Lungs clear to auscultation and percussion, no wheezing, no rubs Gastrointestinal and Liver: Abdomen: Old ostomy site improved. New GT in place. Abdomen soft, non tenderness, not distended, no hernias, no masses, no organomegaly, no ascites, no guarding, no rebound tenderness, normoactive bowel sounds. Extremities: No cyanosis, clubbing, or edema. Diagnostic Studies: Available data and images were reviewed personally. See reports. Significant results and findings are addressed here or in the assessment and plan. Problems: Exam/Review of Systems Vital Signs Vitals Vital Signs Date Time Temp Pulse Resp B/P Pulse Ox O2 Delivery O2 Flow Rate FiO2 10/10/17 07:47 97.8 58 18 163/70 97 Intake and Output 01/09/17 01/09/17 01/10/17 15:00 23:00 07:00 Intake Total 520 ml Balance 520 ml Results Result Diagram: 01/08/17 0502 01/08/17 0502 Medications Medications Current Medications Amlodipine Besylate (Norvasc) 5 mg DAILY PO Last administered on 01/10/17 08: 34; Admin Dose 5 MG; Start 01/07/17 at 09:00 Aspirin (Halfprin) 81 mg DAILY PO Last administered on 01/10/17 08:33; Admin Dose 81 MG; Start 01/07/17 at 09:00 Carvedilol (Coreg) 12.5 mg BID PO Last administered on 01/10/17 08:34; Admin Dose 12.5 MG; Start 01/06/17 at 21:00 Furosemide (Lasix) 20 mg DAILY PO Last administered on 01/10/17 08:33; Admin Dose 20 MG; Start 01/07/17 at 09:00 Lisinopril (Zestril) 20 mg DAILY PO Last administered on 01/10/17 08:34; Admin Dose 20 MG; Start 01/07/17 at 09:00 Metoclopramide HCl (Reglan) 10 mg Q6 IV Last administered on 01/10/17 12:16; Admin Dose 10 MG; Start 01/07/17 at 12:00 JAVI GREER Jan 10, 2017 13:01
[2017-01-10] MEDS ORDERED: morphine 4 MG/ML VIAL IV PRN (21:30)
--- NOTE | 2017-01-10 23:36 | PN ---
Date/Time of Note Date/Time of Note DATE: 01/10/17 TIME: 23:30 Assessment/Plan Lines/Catheters IV Catheter Type (from [facility]): Saline Lock Odonnell in Place (from [facility]): No Assessment/Plan Chief Complaint/Hosp Course 1. Leaking GCF: minimal drainage with continuous feeding; stoma decreasing in size: s/p excisional debridement with chemical cautery -continuous tf instead of bolus feeding from now. -tube feeding off for now. will re-examine tomorrow for continues leak 2. Peristomal maceration: improved -local care for stoma 3. Dysphagia with TF -as above -aspiration precautions 4. History of cva -supportive and medical optimization Thank you. Patient seen and examined in collaboration with Dr. Darvin Alfaro. Problems: Subjective 24 Hr Interval Summary Leak noted from previous peg site with water flushes (delivered via gravity). S/ p debridement with chemical cautery of gcf site. No fevers, chills, sob, congested cough, abdominal pain/discomfort, cp, palpitations. Exam/Review of Systems Vital Signs Vitals Vital Signs Date Time Temp Pulse Resp B/P Pulse Ox O2 Delivery O2 Flow Rate FiO2 01/10/17 22:00 53 18 150/66 95 Room Air 01/10/17 19:58 97.7 Intake and Output 01/09/17 01/09/17 01/10/17 15:00 23:00 07:00 Intake Total 520 ml Balance 520 ml Exam Free Text/Dictation Constitutional: alert, other (nonverbal, tracks) Psych: nl mood/affect Head: atraumatic, normocephalic Eyes: nl lids, nl sclera ENMT: mucosa pink and moist, nl nasal mucosa & septum Neck: non-tender, supple Respiratory: normal air movement Cardiovascular: regular rate and rhythm Gastrointestinal: non-tender, other (previous gcf with large drainage during water flush via gravity; peristoma with erythema and macerated skin-improved with barrier cream; peg), soft Genitourinary - Female: nl external genitalia Musculoskeletal: nl extremities to inspection Extremities: normal pulses Neurological: No nl strength (right sided weakness) Results Result Diagram: 01/08/17 05001/08/17 050 OMID VACA NP Jan 10, 2017 23:36
--- NOTE | 2017-01-10 23:47 | OPR ---
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 All pressure points padded. Time out performed. Using a curette, the gastrocutaneous fistula was debrided to healthier tissue. Using chemical cautery, silver nitrate sticks were used to achieve hemostasis of the gastrocutaneous fistula. The fistula was irrigated and cleansed. A dry dressing was place. OMID VACA NP Jan 10, 2017 23:47
[2017-01-11] MEDS: METOCLOPRAMIDE 10 MG INJ IV SCH ×4 (00:23→17:42)
[2017-01-11 01:48] VITALS: BP 141/62; RESP 18
[2017-01-11 07:36] VITALS: BP 160/70; RESP 18
[2017-01-11] MEDS: FUROSEMIDE 20 MG TAB PO SCH (08:37)
[2017-01-11] MEDS: LISINOPRIL 20 MG TAB PO SCH (08:37)
[2017-01-11] MEDS: ASPIRIN (EC) 81 MG TAB PO SCH (08:37)
[2017-01-11] MEDS: AMLODIPINE 5 MG TAB PO SCH (08:37)
--- NOTE | 2017-01-11 09:54 | PN ---
Date/Time of Note Date/Time of Note DATE: 01/11/17 TIME: 09:42 Assessment/Plan Lines/Catheters IV Catheter Type (from [facility]): Saline Lock Odonnell in Place (from [facility]): No Assessment/Plan Chief Complaint/Hosp Course 1. Leaking GCF: minimal drainage with continuous feeding; stoma decreasing in size: s/p excisional debridement with chemical cautery; no drainage with water flush via gravity -continuous tf instead of bolus feeding from now. -tube feeding restarted at low rate; water flushes half the volume to be delivered with 30 mins-1hour in between via gravity for now. Watch for leaks. 2. Peristomal maceration: improved -local care for stoma 3. Dysphagia with TF -as above -aspiration precautions 4. History of cva -supportive and medical optimization Thank you. Patient seen and examined in collaboration with Dr. Darvin Alfaro. Problems: Subjective 24 Hr Interval Summary Kept nothing per gtube overnight, s/p debridement with chemical cautery. Flushed gtube with water via gravity today without noted leak. No abdominal pain , n/v/d/dysuria, feves, chills, sob, congested cough. Exam/Review of Systems Vital Signs Vitals Vital Signs Date Time Temp Pulse Resp B/P Pulse Ox O2 Delivery O2 Flow Rate FiO2 01/11/17 07:36 98.2 77 18 160/70 97 01/10/17 22:00 Room Air Intake and Output 01/10/17 01/10/17 01/11/17 15:00 23:00 07:00 Intake Total 720 ml Balance 720 ml Exam Free Text/Dictation Constitutional: alert, other (nonverbal, tracks) Psych: nl mood/affect Head: atraumatic, normocephalic Eyes: nl lids, nl sclera ENMT: mucosa pink and moist, nl nasal mucosa & septum Neck: non-tender, supple Respiratory: normal air movement Cardiovascular: regular rate and rhythm Gastrointestinal: non-tender, other (previous gcf without drainage from water flush via gravity; peristoma with erythema and macerated skin-improved with barrier cream; peg), soft Genitourinary - Female: nl external genitalia Musculoskeletal: nl extremities to inspection Extremities: normal pulses Neurological: No nl strength (right sided weakness) Results Result Diagram: 01/08/17 0502 01/08/17 0502 OMID VACA NP Jan 11, 2017 09:54
--- NOTE | 2017-01-11 11:10 | PN ---
Date/Time of Note Date/Time of Note DATE: 01/11/17 TIME: 11:08 Assessment/Plan VTE Prophylaxis VTE Prophylaxis Intervention: SCD's Lines/Catheters IV Catheter Type (from [facility]): Saline Lock Urinary Cath still in place: No Assessment/Plan Chief Complaint/Hosp Course Assessment/Plan: 81 yo F with PEG for dysphagia from prior strokes, here for PEG replacement. Aperture from former PEG site with sanguinous drainage now improving/closing up on its own. PLAN GI and gen surg following, again had debridement yesterday,, follow-up post procedure recommendations. Suspect erythematous patch 2/2 irritation from previous PEG. No compelling indication for broader abx at this time cont home meds, tube feedings through new G-tube (restarted today after being held yesterday). Patient will need pump for enteral feeds until the old G-tube site heals. dc when ok'd by consultants Problems: Subjective 24 Hr Interval Summary Free Text/Dictation Patient had debridement performed yesterday, restarted on tube feeds this morning. No acute events overnight. Exam/Review of Systems Vital Signs Vitals Vital Signs Date Time Temp Pulse Resp B/P Pulse Ox O2 Delivery O2 Flow Rate FiO2 01/11/17 07:36 98.2 77 18 160/70 97 01/10/17 22:00 Room Air Intake and Output 01/10/17 01/10/17 01/11/17 15:00 23:00 07:00 Intake Total 720 ml Balance 720 ml Exam nad no mrg lungs clear abd soft no rashes previous PEG site continues to get smaller, minimal dark drainage appreciated Results Result Diagram: 01/08/17 0502 01/08/17 0502 Medications Medications Current Medications Amlodipine Besylate (Norvasc) 5 mg DAILY PO Last administered on 01/11/17 08: 37; Admin Dose 5 MG; Start 01/07/17 at 09:00 Aspirin (Halfprin) 81 mg DAILY PO Last administered on 01/11/17 08:37; Admin Dose 81 MG; Start 01/07/17 at 09:00 Carvedilol (Coreg) 12.5 mg BID PO Last administered on 01/11/17 08:38; Admin Dose 12.5 MG; Start 01/06/17 at 21:00 Furosemide (Lasix) 20 mg DAILY PO Last administered on 01/11/17 08:37; Admin Dose 20 MG; Start 01/07/17 at 09:00 Lisinopril (Zestril) 20 mg DAILY PO Last administered on 01/11/17 08:37; Admin Dose 20 MG; Start 01/07/17 at 09:00 Metoclopramide HCl (Reglan) 10 mg Q6 IV Last administered on 01/11/17 06:06; Admin Dose 10 MG; Start 01/07/17 at 12:00 Hydralazine HCl (Apresoline) 10 mg Q4H PRN IV ELEVATED SYSTOLIC BP; Start 01/17 at 21:30 Morphine Sulfate (morphine) 3 mg Q4H PRN IV PAIN; Start 01/10/17 at 21:30 FELIPA LOPEZ Jan 11, 2017 11:10
--- NOTE | 2017-01-11 13:23 | PN ---
Date/Time of Note Date/Time of Note DATE: 01/11/17 TIME: 13:19 Assessment/Plan VTE Prophylaxis VTE Prophylaxis Intervention: SCD's Lines/Catheters IV Catheter Type (from [facility] Saline Lock Urinary Cath still in place: No Assessment/Plan Chief Complaint/Hosp Course Assessment: Post removal of malfunctioning gastrostomy tube Persistent leakage from ostomy site- significant improvement Probably mild local cellulitis/appears to be resolved Post placement of new gastrostomy tube History of CVA Expressive aphasia Dysphagia/GT enteral nutrition dependent Plan: Old ostomy site continues to slowly heal- s/p excisional debridement with chemical cautery- currently no episodes of leakage Continue Reglan to improve gastric emptying Continue current regimen of enteral feedings (continuous rate) Continue water flush via gravity Patient seen in collaboration with Dr. Greene Subjective: Course reviewed with nursing staff Patient interviewed and examined All labs, imaging and other results reviewed The patient appears well, resting in bed, family at bedside No leakage from old ostomy site since debridement and chemical cautery Old ostomy site appears to be slowly healing well We will continue present enteral feeding regimen until complete closure and then may go back to bolus feeding at home Water bolus to be given via gravity Will need pump to deliver enteral feeding at home until site is completely healed Exam: General: well developed, well nourished, alert and oriented x3 , in no acute distress Skin: No lesions, no stigmata chronic liver disease, no evidence of bleeding diathesis Lymphatic: No palpable lymphadenopathy HEENT: No lesions Cardiovascular: Heart: Regular rate and rhythm, no murmurs, gallops or rubs. Peripheral pulses present within normal limits, no cyanosis, clubbing or edemas. No pulsatile abdominal mass Respiratory: Lungs clear to auscultation and percussion, no wheezing, no rubs Gastrointestinal and Liver: Abdomen: Old ostomy site improved. New GT in place. Abdomen soft, non tenderness, not distended, no hernias, no masses, no organomegaly, no ascites, no guarding, no rebound tenderness, normoactive bowel sounds. Extremities: No cyanosis, clubbing, or edema. Diagnostic Studies: Available data and images were reviewed personally. See reports. Significant results and findings are addressed here or in the assessment and plan. Problems: Exam/Review of Systems Vital Signs Vitals Vital Signs Date Time Temp Pulse Resp B/P Pulse Ox O2 Delivery O2 Flow Rate FiO2 10/11/17 07:36 98.2 77 18 160/70 97 01/10/17 22:00 Room Air Intake and Output 01/10/17 01/10/17 01/11/17 15:00 23:00 07:00 Intake Total 720 ml Balance 720 ml Results Result Diagram: 01/08/17 0502 01/08/17 0502 Medications Medications Current Medications Amlodipine Besylate (Norvasc) 5 mg DAILY PO Last administered on 01/11/17 08: 37; Admin Dose 5 MG; Start 01/07/17 at 09:00 Aspirin (Halfprin) 81 mg DAILY PO Last administered on 01/11/17 08:37; Admin Dose 81 MG; Start 01/07/17 at 09:00 Carvedilol (Coreg) 12.5 mg BID PO Last administered on 01/11/17 08:38; Admin Dose 12.5 MG; Start 01/06/17 at 21:00 Furosemide (Lasix) 20 mg DAILY PO Last administered on 01/11/17 08:37; Admin Dose 20 MG; Start 01/07/17 at 09:00 Lisinopril (Zestril) 20 mg DAILY PO Last administered on 01/11/17 08:37; Admin Dose 20 MG; Start 01/07/17 at 09:00 Metoclopramide HCl (Reglan) 10 mg Q6 IV Last administered on 01/11/17 12:29; Admin Dose 10 MG; Start 01/07/17 at 12:00 Hydralazine HCl (Apresoline) 10 mg Q4H PRN IV ELEVATED SYSTOLIC BP; Start 01/17 at 21:30 Morphine Sulfate (morphine) 3 mg Q4H PRN IV PAIN; Start 01/10/17 at 21:30 JAVI GREER Jan 11, 2017 13:23
[2017-01-11 14:09] VITALS: BP 137/64; RESP 16
[2017-01-11 19:58] VITALS: BP 156/67; RESP 20
[2017-01-12] MEDS: METOCLOPRAMIDE 10 MG INJ IV SCH ×4 (01:13→18:07)
[2017-01-12 02:00] VITALS: BP 144/65; RESP 18
[2017-01-12 08:15] VITALS: BP 160/70; RESP 16
[2017-01-12] MEDS: LISINOPRIL 20 MG TAB PO SCH (09:22)
[2017-01-12] MEDS: ASPIRIN (EC) 81 MG TAB PO SCH (09:22)
[2017-01-12] MEDS: AMLODIPINE 5 MG TAB PO SCH (09:23)
[2017-01-12] MEDS: FUROSEMIDE 20 MG TAB PO SCH (09:23)
--- NOTE | 2017-01-12 10:46 | PN ---
Date/Time of Note Date/Time of Note DATE: 01/12/17 TIME: 10:41 Assessment/Plan VTE Prophylaxis VTE Prophylaxis Intervention: SCD's Lines/Catheters IV Catheter Type (from [facility]): Saline Lock Urinary Cath still in place: No Assessment/Plan Chief Complaint/Hosp Course Assessment/Plan: 81 yo F with PEG for dysphagia from prior strokes, here for PEG replacement. Aperture from former PEG site with sanguinous drainage now improving/closing up on its own. PLAN GI and gen surg following, again had debridement 2 days ago, follow-up post procedure recommendations. Since there appears to be new drainage from the old site, need to discuss with surgery team about this again today. Suspect erythematous patch 2/2 irritation from previous PEG. No compelling indication for broader abx at this time cont home meds, tube feedings through new G-tube (restarted today after being held yesterday). Patient will need pump for enteral feeds until the old G-tube site heals. dc when ok'd by consultants Problems: Subjective 24 Hr Interval Summary Free Text/Dictation Patient having some leakage now from the old illness site, otherwise tolerating PEG tube feeds no acute events overnight. Exam/Review of Systems Vital Signs Vitals Vital Signs Date Time Temp Pulse Resp B/P Pulse Ox O2 Delivery O2 Flow Rate FiO2 01/12/17 08:15 97.5 59 16 160/70 95 01/10/17 22:00 Room Air Intake and Output 01/11/17 01/11/17 01/12/17 15:00 23:00 07:00 Intake Total 0 ml 600 ml Output Total 400 ml Balance -400 ml 600 ml Exam nad no mrg lungs clear abd soft no rashes previous PEG site continues to get smaller, but some new drainage noted Results Result Diagram: 01/08/17 0502 01/08/17 0502 Medications Medications Current Medications Amlodipine Besylate (Norvasc) 5 mg DAILY PO Last administered on 01/12/17 09: 23; Admin Dose 5 MG; Start 01/07/17 at 09:00 Aspirin (Halfprin) 81 mg DAILY PO Last administered on 01/12/17 09:22; Admin Dose 81 MG; Start 01/07/17 at 09:00 Carvedilol (Coreg) 12.5 mg BID PO Last administered on 01/12/17 09:24; Admin Dose 12.5 MG; Start 01/06/17 at 21:00 Furosemide (Lasix) 20 mg DAILY PO Last administered on 01/12/17 09:23; Admin Dose 20 MG; Start 01/07/17 at 09:00 Lisinopril (Zestril) 20 mg DAILY PO Last administered on 01/12/17 09:22; Admin Dose 20 MG; Start 01/07/17 at 09:00 Metoclopramide HCl (Reglan) 10 mg Q6 IV Last administered on 01/12/17 05:46; Admin Dose 10 MG; Start 01/07/17 at 12:00 Hydralazine HCl (Apresoline) 10 mg Q4H PRN IV ELEVATED SYSTOLIC BP; Start 01/17 at 21:30 Morphine Sulfate (morphine) 3 mg Q4H PRN IV PAIN; Start 01/10/17 at 21:30 FELIPA LOPEZ Jan 12, 2017 10:46
--- NOTE | 2017-01-12 13:02 | PN ---
Date/Time of Note Date/Time of Note DATE: 01/12/17 TIME: 12:57 Assessment/Plan VTE Prophylaxis VTE Prophylaxis Intervention: SCD's Lines/Catheters IV [facility] Type (from [facility] Saline Lock Urinary Cath still in place: No Assessment/Plan Chief Complaint/Hosp Course Assessment: Post removal of malfunctioning gastrostomy tube Persistent leakage from ostomy site- minimal Probably mild local cellulitis/appears to be resolved Post placement of new gastrostomy tube History of CVA Expressive aphasia Dysphagia/GT enteral nutrition dependent Plan: Old ostomy site slowly healing s/p excisional debridement with chemical cautery , yesterday, no leakage noted 01/11 However min leakage noted today Patient seen by surgery will consider surgical intervention Continue Reglan to improve gastric emptying Continue current regimen of enteral feedings (continuous rate) Water flush via gravity Patient seen in collaboration with Dr. Greene Subjective: Course reviewed with nursing staff Patient interviewed and examined All labs, imaging and other results reviewed The patient appears stable S/p debridement and chemical cautery 01/11 Old ostomy site appears to be slowly healing, however min leakage noted- pt seen by surgery intervention may be needed at this time We will continue present enteral feeding regimen until complete closure and then may go back to bolus feeding at home Water bolus to be given via gravity Will need pump to deliver enteral feeding at home until site is completely healed Exam: General: well developed, well nourished, alert and oriented x3 , in no acute distress Skin: No lesions, no stigmata chronic liver disease, no evidence of bleeding diathesis Lymphatic: No palpable lymphadenopathy HEENT: No lesions Cardiovascular: Heart: Regular rate and rhythm, no murmurs, gallops or rubs. Peripheral pulses present within normal limits, no cyanosis, clubbing or edemas. No pulsatile abdominal mass Respiratory: Lungs clear to auscultation and percussion, no wheezing, no rubs Gastrointestinal and Liver: Abdomen: Old ostomy site improved. New GT in place. Abdomen soft, non tenderness, not distended, no hernias, no masses, no organomegaly, no ascites, no guarding, no rebound tenderness, normoactive bowel sounds. Extremities: No cyanosis, clubbing, or edema. Diagnostic Studies: Available data and images were reviewed personally. See reports. Significant results and findings are addressed here or in the assessment and plan. Problems: Exam/Review of Systems Vital Signs Vitals Vital Signs Date Time Temp Pulse Resp B/P Pulse Ox O2 Delivery O2 Flow Rate FiO2 01/12/17 08:15 97.5 59 16 160/70 95 01/10/17 22:00 Room Air Intake and Output 01/11/17 01/11/17 01/12/17 15:00 23:00 07:00 Intake Total 0 ml 600 ml Output Total 400 ml Balance -400 ml 600 ml Results Result Diagram: 01/08/17 0502 01/08/17 0502 Medications Medications Current Medications Amlodipine Besylate (Norvasc) 5 mg DAILY PO Last administered on 01/12/17 09: 23; Admin Dose 5 MG; Start 01/07/17 at 09:00 Aspirin (Halfprin) 81 mg DAILY PO Last administered on 01/12/17 09:22; Admin Dose 81 MG; Start 01/07/17 at 09:00 Carvedilol (Coreg) 12.5 mg BID PO Last administered on 01/12/17 09:24; Admin Dose 12.5 MG; Start 01/06/17 at 21:00 Furosemide (Lasix) 20 mg DAILY PO Last administered on 01/12/17 09:23; Admin Dose 20 MG; Start 01/07/17 at 09:00 Lisinopril (Zestril) 20 mg DAILY PO Last administered on 01/12/17 09:22; Admin Dose 20 MG; Start 01/07/17 at 09:00 Metoclopramide HCl (Reglan) 10 mg Q6 IV Last administered on 01/12/17 12:54; Admin Dose 10 MG; Start 01/07/17 at 12:00 Hydralazine HCl (Apresoline) 10 mg Q4H PRN IV ELEVATED SYSTOLIC BP; Start 01/17 at 21:30 Morphine Sulfate (morphine) 3 mg Q4H PRN IV PAIN; Start 01/10/17 at 21:30 JAVI GREER Jan 12, 2017 13:02
[2017-01-12 13:16] VITALS: BP 167/72; RESP 20
--- NOTE | 2017-01-12 13:17 | PN ---
Date/Time of Note Date/Time of Note DATE: 01/12/17 TIME: 13:10 Assessment/Plan Lines/Catheters [facility] Saline Lock Odonnlel in Place [facility] No Assessment/Plan Chief Complaint/Hosp Course 1. Leaking GCF: minimal drainage with continuous feeding; stoma decreasing in size: s/p excisional debridement with chemical cautery; no drainage with water flush via gravity -will need surgical repair of gcf- liekly tomorrow 2. Peristomal maceration: improved -local care for stoma 3. Dysphagia with TF -as above -aspiration precautions 4. History of cva -supportive and medical optimization Thank you. Patient seen and examined in collaboration with Dr. Darvin Alfaro. Problems: Subjective 24 Hr Interval Summary Patient noted with water leak from previous peg site. No fevers, chills, sob, congested cough, n/v/d/dysuria, cp, palpitations. Exam/Review of Systems Vital Signs Vitals Vital Signs Date Time Temp Pulse Resp B/P Pulse Ox O2 Delivery O2 Flow Rate FiO2 01/12/17 08:15 97.5 59 16 160/70 95 01/10/17 22:00 Room Air Intake and Output 01/11/17 01/11/17 01/12/17 15:00 23:00 07:00 Intake Total 0 ml 600 ml Output Total 400 ml Balance -400 ml 600 ml Exam Free Text/Dictation Constitutional: alert, other (nonverbal, tracks) Psych: nl mood/affect Head: atraumatic, normocephalic Eyes: nl lids, nl sclera ENMT: mucosa pink and moist, nl nasal mucosa & septum Neck: non-tender, supple Respiratory: normal air movement Cardiovascular: regular rate and rhythm Gastrointestinal: non-tender, other (previous gcf with drainage from water flush; peristoma with erythema and macerated skin-improved with barrier cream; peg), soft Genitourinary - Female: nl external genitalia Musculoskeletal: nl extremities to inspection Extremities: normal pulses Neurological: No nl strength (right sided weakness) Results Result Diagram: 01/08/17 05001/08/17 050 OMID VACA NP Jan 12, 2017 13:17
[2017-01-12 19:45] VITALS: BP 153/66; RESP 18
[2017-01-12 21:13] VITALS: PULSE 60
[2017-01-13] MEDS: METOCLOPRAMIDE 10 MG INJ IV SCH ×4 (00:14→18:28)
[2017-01-13 05:43] LABS: BASOPHIL # 0.1 10^3/ul (0.0-0.1); BASOPHILS % 0.9 % (0.0-2.0); EOSINOPHILS # 0.1 10^3/ul (0.0-0.5); HEMATOCRIT 40.9 % (37.0-47.0); HEMOGLOBIN 13.3 g/dl (12.0-16.0); LYMPHOCYTES # 1.3 10^3/ul (0.8-2.9); LYMPHOCYTES % 24.2 % (15.0-51.0); MEAN CORPUSCULAR HEMOGLOBIN 32.7 pg (29.0-33.0); MEAN CORPUSCULAR HGB CONC 32.5 g/dl (32.0-37.0); MEAN CORPUSCULAR VOLUME 100.5 fl (82.0-101.0); MEAN PLATELET VOLUME 10.7 fl (7.4-10.4); MONOCYTE # 0.6 10^3/ul (0.3-0.9); MONOCYTES % 11.3 % (0.0-11.0); NEUTROPHIL # 3.4 10^3/ul (1.6-7.5); NEUTROPHILS % 61.6 % (39.0-77.0); PLATELET COUNT 185 10^3/UL (140-415); RED BLOOD COUNT 4.07 10^6/ul (4.20-5.40); RED CELL DISTRIBUTION WIDTH 12.5 % (11.5-14.5); WHITE BLOOD COUNT 5.5 10^3/ul (4.8-10.8)
[2017-01-13 06:00] LABS: INR 1.04; PROTIME 13.6 Sec (12.2-14.2); PT RATIO 1.1
[2017-01-13 06:17] LABS: CALCIUM 11.4 mg/dl (8.4-10.2); CREATININE 0.72 mg/dl (0.44-1.00); POTASSIUM 3.3 mmol/L (3.5-5.1)
[2017-01-13 07:45] VITALS: BP 159/71; RESP 16
[2017-01-13] MEDS: DEXTROSE 5%-0.45% NACL 1,000 ML IV SCH ×3 (08:05→22:51)
--- NOTE | 2017-01-13 10:13 | PN ---
Date/Time of Note Date/Time of Note DATE: 01/13/17 TIME: 10:08 Assessment/Plan VTE Prophylaxis VTE Prophylaxis Intervention: SCD's Lines/Catheters IV Catheter Type (from [facility]): Saline Lock Urinary Cath still in place: No Assessment/Plan Chief Complaint/Hosp Course Assessment/Plan: 81 yo F with PEG for dysphagia from prior strokes, here for PEG replacement. Aperture from former PEG site with sanguinous drainage now improving/closing up on its own. PLAN GI and gen surg following, again had debridement 3 days ago. Since there appears to be new drainage from the old site, plan is for surgical procedure in 24 hours to help repair this. Suspect erythematous patch 2/2 irritation from previous PEG. No compelling indication for broader abx at this time. cont home meds, tube feedings through new G-tube (restarted today after being held yesterday). Patient will need pump for enteral feeds until the old G-tube site heals. Problems: Subjective 24 Hr Interval Summary Free Text/Dictation Patient not going to have surgery today, scheduled for tomorrow now. Still having some leakage from the old site. Was not on feeds yesterday in anticipation of possible surgery today, but again that is for tomorrow. Exam/Review of Systems Vital Signs Vitals Vital Signs Date Time Temp Pulse Resp B/P Pulse Ox O2 Delivery O2 Flow Rate FiO2 01/13/17 07:45 98.1 51 16 159/71 96 01/10/17 22:00 Room Air Intake and Output 01/12/17 01/12/17 01/13/17 15:00 23:00 07:00 Intake Total 600 ml 240 ml Output Total 300 ml Balance 300 ml 240 ml Exam nad no mrg lungs clear abd soft no rashes previous PEG site continues to get smaller, but again some drainage noted Results Result Diagram: 01/13/17 0516 01/13/17 0516 Results 24 hrs Laboratory Tests Test 01/13/17 05:16 White Blood Count 5.5 Red Blood Count 4.07 #L Hemoglobin 13.3 Hematocrit 40.9 # Mean Corpuscular Volume 100.5 Mean Corpuscular Hemoglobin 32.7 Mean Corpuscular Hemoglobin Concent 32.5 Red Cell Distribution Width 12.5 Platelet Count 185 Mean Platelet Volume 10.7 H Neutrophils % 61.6 Lymphocytes % 24.2 Monocytes % 11.3 H Eosinophils % 2.0 Basophils % 0.9 Nucleated Red Blood Cells % 0.0 Neutrophils # 3.4 Lymphocytes # 1.3 Monocytes # 0.6 Eosinophils # 0.1 Basophils # 0.1 Nucleated Red Blood Cells # 0.0 Prothrombin Time 13.6 Prothrombin Time Ratio 1.1 INR International Normalized Ratio 1.04 Sodium Level 155 H Potassium Level 3.3 L Chloride Level 108 Carbon Dioxide Level 38 H Anion Gap 12 Blood Urea Nitrogen 51 H Creatinine 0.72 Glucose Level 109 Calcium Level 11.4 H Medications Medications Current Medications Amlodipine Besylate (Norvasc) 5 mg DAILY PO Last administered on 01/12/17 09: 23; Admin Dose 5 MG; Start 01/07/17 at 09:00 Aspirin (Halfprin) 81 mg DAILY PO Last administered on 01/12/17 09:22; Admin Dose 81 MG; Start 01/07/17 at 09:00 Carvedilol (Coreg) 12.5 mg BID PO Last administered on 01/12/17 21:15; Admin Dose 12.5 MG; Start 01/06/17 at 21:00 Furosemide (Lasix) 20 mg DAILY PO Last administered on 01/12/17 09:23; Admin Dose 20 MG; Start 01/07/17 at 09:00 Lisinopril (Zestril) 20 mg DAILY PO Last administered on 01/12/17 09:22; Admin Dose 20 MG; Start 01/07/17 at 09:00 Metoclopramide HCl (Reglan) 10 mg Q6 IV Last administered on 01/13/17 05:51; Admin Dose 10 MG; Start 01/07/17 at 12:00 Hydralazine HCl (Apresoline) 10 mg Q4H PRN IV ELEVATED SYSTOLIC BP; Start 01/17 at 21:30 Morphine Sulfate 3 mg 3 mg Q4H PRN IV PAIN; Start 01/10/17 at 21:30 Dextrose/Sodium Chloride (D5-1/2ns) 1,000 ml @ 75 mls/hr [id number] IV Last administered on 01/13/17 08:05; Admin Dose 75 MLS/HR; Start 01/13/17 at 07:00 FELIPA LOPEZ Jan 13, 2017 10:13
[2017-01-13] MEDS: FUROSEMIDE 20 MG TAB PO SCH (10:30)
[2017-01-13] MEDS: AMLODIPINE 5 MG TAB PO SCH (10:30)
[2017-01-13] MEDS: LISINOPRIL 20 MG TAB PO SCH (10:31)
[2017-01-13] MEDS: ASPIRIN (EC) 81 MG TAB PO SCH (10:31)
[2017-01-13 12:30] LABS: CREATININE 0.73 mg/dl (0.44-1.00); POTASSIUM 3.4 mmol/L (3.5-5.1)
[2017-01-13 14:22] VITALS: BP 170/72; RESP 16
--- NOTE | 2017-01-13 17:16 | PN ---
Date/Time of Note Date/Time of Note DATE: 01/13/17 TIME: 17:13 Assessment/Plan VTE Prophylaxis VTE Prophylaxis Intervention: SCD's Lines/Catheters IV [facility] ([facility] Saline Lock Urinary Cath still in place: No Assessment/Plan Chief Complaint/Hosp Course Assessment: Post removal of malfunctioning gastrostomy tube Persistent leakage from ostomy site- now needs surgical intervention Probably mild local cellulitis/appears to be resolved Post placement of new gastrostomy tube History of CVA Expressive aphasia Dysphagia/GT enteral nutrition dependent Plan: Ostomy site continues to minimally leak, despite previous debridement with chemical cautery 01/11. Plan for surgical intervention today Currently n.p.o. Continue Reglan to improve gastric emptying Once leakage controlled, cleared from GI point of view Patient seen in collaboration with Dr. Greene Subjective: Course reviewed with nursing staff Patient interviewed and examined All labs, imaging and other results reviewed The patient resting well S/p debridement and chemical cautery 01/11 Plan for surgical intervention today No complaints at this time Exam: General: well developed, well nourished, alert and oriented x3 , in no acute distress Skin: No lesions, no stigmata chronic liver disease, no evidence of bleeding diathesis, previous ostomy site healing slowly Lymphatic: No palpable lymphadenopathy HEENT: No lesions Cardiovascular: Heart: Regular rate and rhythm, no murmurs, gallops or rubs. Peripheral pulses present within normal limits, no cyanosis, clubbing or edemas. No pulsatile abdominal mass Respiratory: Lungs clear to auscultation and percussion, no wheezing, no rubs Gastrointestinal and Liver: Abdomen: Old ostomy site improved. New GT in place. Abdomen soft, non tenderness, not distended, no hernias, no masses, no organomegaly, no ascites, no guarding, no rebound tenderness, normoactive bowel sounds. Extremities: No cyanosis, clubbing, or edema. Diagnostic Studies: Available data and images were reviewed personally. See reports. Significant results and findings are addressed here or in the assessment and plan. Problems: Exam/Review of Systems Vital Signs Vitals Vital Signs Date Time Temp Pulse Resp B/P Pulse Ox O2 Delivery O2 Flow Rate FiO2 01/13/17 14:22 97.8 50 16 170/72 97 01/10/17 22:00 Room Air Intake and Output 01/12/17 01/12/1717 15:00 23:00 07:00 Intake Total 600 ml 240 ml Output Total 300 ml Balance 300 ml 240 ml Results Result Diagram: 01/13/17 0516 01/13/17 1119 Results 24 hrs Laboratory Tests Test 01/13/17 05:16 01/13/17 11:19 White Blood Count 5.5 Red Blood Count 4.07 #L Hemoglobin 13.3 Hematocrit 40.9 # Mean Corpuscular Volume 100.5 Mean Corpuscular Hemoglobin 32.7 Mean Corpuscular Hemoglobin Concent 32.5 Red Cell Distribution Width 12.5 Platelet Count 185 Mean Platelet Volume 10.7 H Neutrophils % 61.6 Lymphocytes % 24.2 Monocytes % 11.3 H Eosinophils % 2.0 Basophils % 0.9 Nucleated Red Blood Cells % 0.0 Neutrophils # 3.4 Lymphocytes # 1.3 Monocytes # 0.6 Eosinophils # 0.1 Basophils # 0.1 Nucleated Red Blood Cells # 0.0 Prothrombin Time 13.6 Prothrombin Time Ratio 1.1 INR International Normalized Ratio 1.04 Sodium Level 155 H 154 H Potassium Level 3.3 L 3.4 L Chloride Level 108 107 Carbon Dioxide Level 38 H 38 H Anion Gap 12 12 Blood Urea Nitrogen 51 H 51 H Creatinine 0.72 0.73 Glucose Level 109 146 Calcium Level 11.4 H 11.0 H Medications Medications Current Medications Amlodipine Besylate (Norvasc) 5 mg DAILY PO Last administered on 01/13/17 10: 30; Admin Dose 5 MG; Start 01/07/17 at 09:00 Aspirin (Halfprin) 81 mg DAILY PO Last administered on 01/13/17 10:31; Admin Dose 81 MG; Start 01/07/17 at 09:00 Carvedilol (Coreg) 12.5 mg BID PO Last administered on 01/13/17 10:31; Admin Dose 12.5 MG; Start 01/06/17 at 21:00 Furosemide (Lasix) 20 mg DAILY PO Last administered on 01/13/17 10:30; Admin Dose 20 MG; Start 01/07/17 at 09:00 Lisinopril (Zestril) 20 mg DAILY PO Last administered on 01/13/17 10:31; Admin Dose 20 MG; Start 01/07/17 at 09:00 Metoclopramide HCl (Reglan) 10 mg Q6 IV Last administered on 01/13/17 12:59; Admin Dose 10 MG; Start 01/07/17 at 12:00 Hydralazine HCl (Apresoline) 10 mg Q4H PRN IV ELEVATED SYSTOLIC BP; Start 01/17 at 21:30 Morphine Sulfate 3 mg 3 mg Q4H PRN IV PAIN; Start 01/10/17 at 21:30 Dextrose/Sodium Chloride (D5-1/2ns) 1,000 ml @ 75 mls/hr [id number] IV Last administered on 01/13/17 08:05; Admin Dose 75 MLS/HR; Start 01/13/17 at 07:00 JAVI GREER Jan 13, 2017 17:16
--- NOTE | 2017-01-13 20:11 | PN ---
Date/Time of Note Date/Time of Note DATE: 01/13/17 TIME: 20:09 Assessment/Plan Lines/Catheters IV Catheter Type (from [facility]): Saline Lock Odonnell in Place (from [facility]): No Assessment/Plan Chief Complaint/Hosp Course 1. Leaking GCF: minimal drainage with continuous feeding; stoma decreasing in size: s/p excisional debridement with chemical cautery; no drainage with water flush via gravity -will need surgical repair of gcf- tomorrow 2. Peristomal maceration: improved -local care for stoma 3. Dysphagia with TF -as above -aspiration precautions 4. History of cva -supportive and medical optimization Thank you. Patient seen and examined in collaboration with Dr. Darvin Alfaro. Problems: Subjective 24 Hr Interval Summary Min leaking from previous peg site- however nothing per gtube. No c/o abdominal pain, new leaks, sob, congested cough, n/v/d/dysuria. Exam/Review of Systems Vital Signs Vitals Vital Signs Date Time Temp Pulse Resp B/P Pulse Ox O2 Delivery O2 Flow Rate FiO2 01/13/17 14:22 97.8 50 16 170/72 97 01/10/17 22:00 Room Air Intake and Output 01/12/17 01/12/17 01/13/17 14:59 22:59 06:59 Intake Total 600 ml 240 ml Output Total 300 ml Balance 300 ml 240 ml Exam Free Text/Dictation Constitutional: alert, other (nonverbal, tracks) Psych: nl mood/affect Head: atraumatic, normocephalic Eyes: nl lids, nl sclera ENMT: mucosa pink and moist, nl nasal mucosa & septum Neck: non-tender, supple Respiratory: normal air movement Cardiovascular: regular rate and rhythm Gastrointestinal: non-tender, other (previous gcf with min drainage; peristoma with erythema and macerated skin-improving with barrier cream; peg), soft Genitourinary - Female: nl external genitalia Musculoskeletal: nl extremities to inspection Extremities: normal pulses Neurological: No nl strength (right sided weakness) Results Result Diagram: 01/13/17 0516 01/13/17 1119 OMID VACA NP Jan 13, 2017 20:11
[2017-01-13 20:17] VITALS: BP 168/72; RESP 16
[2017-01-13] MEDS: hydrALAzine 20 MG INJ IV PRN (22:52)
[2017-01-14] VITALS (15 sets, daily range): BP systolic 125–152; BP diastolic 48–76; PULSE 59–85; RESP 16–24
[2017-01-14] MEDS: METOCLOPRAMIDE 10 MG INJ IV SCH ×4 (00:15→18:14)
[2017-01-14] MEDS: hydrALAzine 20 MG INJ IV PRN (06:17)
[2017-01-14 06:31] LABS: BASOPHIL # 0.1 10^3/ul (0.0-0.1); BASOPHILS % 1.4 % (0.0-2.0); EOSINOPHILS # 0.1 10^3/ul (0.0-0.5); HEMATOCRIT 39.7 % (37.0-47.0); HEMOGLOBIN 12.9 g/dl (12.0-16.0); LYMPHOCYTES # 1.3 10^3/ul (0.8-2.9); LYMPHOCYTES % 29.8 % (15.0-51.0); MEAN CORPUSCULAR HGB CONC 32.5 g/dl (32.0-37.0); MEAN CORPUSCULAR VOLUME 101.5 fl (82.0-101.0); MEAN PLATELET VOLUME 10.7 fl (7.4-10.4); MONOCYTE # 0.5 10^3/ul (0.3-0.9); MONOCYTES % 11.7 % (0.0-11.0); NEUTROPHIL # 2.4 10^3/ul (1.6-7.5); NEUTROPHILS % 54.9 % (39.0-77.0); PLATELET COUNT 181 10^3/UL (140-415); RED BLOOD COUNT 3.91 10^6/ul (4.20-5.40); RED CELL DISTRIBUTION WIDTH 12.6 % (11.5-14.5); WHITE BLOOD COUNT 4.4 10^3/ul (4.8-10.8)
[2017-01-14 07:04] LABS: ALBUMIN 3.3 g/dl (3.3-4.9); BILIRUBIN,INDIRECT 0.6 mg/dl (0-1.1); BILIRUBIN,TOTAL 0.6 mg/dl (0.2-1.3); CALCIUM 10.5 mg/dl (8.4-10.2); CREATININE 0.71 mg/dl (0.44-1.00); POTASSIUM 3.1 mmol/L (3.5-5.1); TOTAL PROTEIN 6.6 g/dl (6.1-8.1)
--- NOTE | 2017-01-14 08:48 | PN ---
Date/Time of Note Date/Time of Note DATE: 01/14/17 TIME: 08:47 Assessment/Plan VTE Prophylaxis VTE Prophylaxis Intervention: SCD's Lines/Catheters IV Catheter Type (from [facility]): Peripheral IV Urinary Cath still in place: No Assessment/Plan Chief Complaint/Hosp Course Assessment: Post removal of malfunctioning gastrostomy tube Persistent leakage from ostomy site- minimal Probably mild local cellulitis/appears to be resolved Post placement of new gastrostomy tube History of CVA Expressive aphasia Dysphagia/GT enteral nutrition dependent Plan: Ostomy site continues to minimally leak, despite previous debridement with chemical cautery 01/11. Plan for surgical intervention within the next 24 hours Currently n.p.o. Continue Reglan to improve gastric emptying Patient seen in collaboration with Dr. Greene Subjective: Course reviewed with nursing staff Patient interviewed and examined All labs, imaging and other results reviewed The patient appears stable S/p debridement and chemical cautery 01/11 Will move forward with surgical intervention with next 24 hours No complaints at this time Exam: General: well developed, well nourished, alert and oriented x3 , in no acute distress Skin: No lesions, no stigmata chronic liver disease, no evidence of bleeding diathesis Lymphatic: No palpable lymphadenopathy HEENT: No lesions Cardiovascular: Heart: Regular rate and rhythm, no murmurs, gallops or rubs. Peripheral pulses present within normal limits, no cyanosis, clubbing or edemas. No pulsatile abdominal mass Respiratory: Lungs clear to auscultation and percussion, no wheezing, no rubs Gastrointestinal and Liver: Abdomen: Old ostomy site improved. New GT in place. Abdomen soft, non tenderness, not distended, no hernias, no masses, no organomegaly, no ascites, no guarding, no rebound tenderness, normoactive bowel sounds. Extremities: No cyanosis, clubbing, or edema. Diagnostic Studies: Available data and images were reviewed personally. See reports. Significant results and findings are addressed here or in the assessment and plan. Problems: Subjective 24 Hr Interval Summary Constitutional: no complaints Respiratory: no complaints Cardiovascular: no complaints Gastrointestinal: No constipation, No nausea, No pain, No vomiting Genitourinary: no complaints Skin: other (previous ostomy site slowly healing) Exam/Review of Systems Vital Signs Vitals Vital Signs Date Time Temp Pulse Resp B/P Pulse Ox O2 Delivery O2 Flow Rate FiO2 01/14/17 07:55 97.6 74 16 139/65 95 01/10/17 22:00 Room Air Intake and Output 01/13/17 01/13/17 01/14/17 15:00 23:00 07:00 Intake Total 1000 ml 450 ml Balance 1000 ml 450 ml Results Result Diagram: 01/14/17 0510 01/14/17 0510 Results 24 hrs Laboratory Tests Test 01/13/17 11:19 01/14/17 05:10 Sodium Level 154 H 152 H Potassium Level 3.4 L 3.1 L Chloride Level 107 109 Carbon Dioxide Level 38 H 36 H Anion Gap 12 10 Blood Urea Nitrogen 51 H 40 #H Creatinine 0.73 0.71 Glucose Level 146 116 Calcium Level 11.0 H 10.5 H White Blood Count 4.4 L Red Blood Count 3.91 L Hemoglobin 12.9 Hematocrit 39.7 Mean Corpuscular Volume 101.5 H Mean Corpuscular Hemoglobin 33.0 Mean Corpuscular Hemoglobin Concent 32.5 Red Cell Distribution Width 12.6 Platelet Count 181 Mean Platelet Volume 10.7 H Neutrophils % 54.9 Lymphocytes % 29.8 Monocytes % 11.7 H Eosinophils % 2.0 Basophils % 1.4 Nucleated Red Blood Cells % 0.0 Neutrophils # 2.4 Lymphocytes # 1.3 Monocytes # 0.5 Eosinophils # 0.1 Basophils # 0.1 Nucleated Red Blood Cells # 0.0 Total Bilirubin 0.6 Direct Bilirubin 0.00 Indirect Bilirubin 0.6 Aspartate Amino Transf (AST/SGOT) 148 H Alanine Aminotransferase (ALT/SGPT) 166 H Alkaline Phosphatase 106 Total Protein 6.6 Albumin 3.3 Globulin 3.30 H Albumin/Globulin Ratio 1.00 Medications Medications Current Medications Amlodipine Besylate (Norvasc) 5 mg DAILY PO Last administered on 01/13/17 10: 30; Admin Dose 5 MG; Start 01/07/17 at 09:00 Aspirin (Halfprin) 81 mg DAILY PO Last administered on 01/13/17 10:31; Admin Dose 81 MG; Start 01/07/17 at 09:00 Carvedilol (Coreg) 12.5 mg BID PO Last administered on 01/13/17 10:31; Admin Dose 12.5 MG; Start 01/06/17 at 21:00 Furosemide (Lasix) 20 mg DAILY PO Last administered on 01/13/17 10:30; Admin Dose 20 MG; Start 01/07/17 at 09:00 Lisinopril (Zestril) 20 mg DAILY PO Last administered on 01/13/17 10:31; Admin Dose 20 MG; Start 01/07/17 at 09:00 Metoclopramide HCl (Reglan) 10 mg Q6 IV Last administered on 01/14/17 06:16; Admin Dose 10 MG; Start 01/07/17 at 12:00 Hydralazine HCl (Apresoline) 10 mg Q4H PRN IV ELEVATED SYSTOLIC BP Last administered on 01/14/17 06:17; Admin Dose 10 MG; Start 01/10/17 at 21:30 Morphine Sulfate 3 mg 3 mg Q4H PRN IV PAIN; Start 01/10/17 at 21:30 Dextrose/Sodium Chloride (D5-1/2ns) 1,000 ml @ 75 mls/hr [id number] IV Last administered on 01/13/17 22:51; Admin Dose 75 MLS/HR; Start 01/13/17 at 07:00 Hydralazine HCl (Apresoline) 10 mg Q8 PO ; Start 01/13/17 at 22:30 JAVI GREER Jan 14, 2017 08:48
[2017-01-14] MEDS: ASPIRIN (EC) 81 MG TAB PO SCH (09:00)
[2017-01-14] MEDS: LISINOPRIL 20 MG TAB PO SCH (09:14)
[2017-01-14] MEDS: AMLODIPINE 5 MG TAB PO SCH (09:14)
[2017-01-14] MEDS: FUROSEMIDE 20 MG TAB PO SCH (09:16)
[2017-01-14] MEDS: DEXTROSE 5%-0.45% NACL 1,000 ML IV SCH ×2 (09:40→12:36)
--- NOTE | 2017-01-14 11:17 | PN ---
Date/Time of Note Date/Time of Note DATE: 01/14/17 TIME: 11:16 Assessment/Plan VTE Prophylaxis VTE Prophylaxis Intervention: SCD's Lines/Catheters IV [facility] Type (from [facility]): Peripheral IV Urinary Cath still in place: No Assessment/Plan Chief Complaint/Hosp Course Assessment/Plan: 81 yo F with PEG for dysphagia from prior strokes, here for PEG replacement. Aperture from former PEG site with sanguinous drainage now improving/closing up on its own. PLAN GI and gen surg following, again had debridement 4 days ago. Since there appears to be new drainage from the old site, plan is for surgical procedure/ debridement for later today to help repair this - Follow-up post procedure recommendations Suspect erythematous patch 2/2 irritation from previous PEG. No compelling indication for broader abx at this time. cont home meds, tube feedings through new G-tube (restarted today after being held yesterday). Patient will need pump for enteral feeds until the old G-tube site heals. Problems: Subjective 24 Hr Interval Summary Free Text/Dictation Patient awaiting debridement procedure for later today, still n.p.o., on D5 IV fluids, no acute events overnight. Exam/Review of Systems Vital Signs Vitals Vital Signs Date Time Temp Pulse Resp B/P Pulse Ox O2 Delivery O2 Flow Rate FiO2 01/14/17 07:55 97.6 74 16 139/65 95 01/10/17 22:00 Room Air Intake and Output 01/13/17 01/13/17 01/14/17 15:00 23:00 07:00 Intake Total 1000 ml 450 ml Balance 1000 ml 450 ml Exam nad no mrg lungs clear abd soft no rashes previous PEG site continues to get smaller, but again some drainage noted Results Result Diagram: 01/14/17 0510 01/14/17 0510 Results 24 hrs Laboratory Tests Test 01/13/17 11:19 01/14/17 05:10 Sodium Level 154 H 152 H Potassium Level 3.4 L 3.1 L Chloride Level 107 109 Carbon Dioxide Level 38 H 36 H Anion Gap 12 10 Blood Urea Nitrogen 51 H 40 #H Creatinine 0.73 0.71 Glucose Level 146 116 Calcium Level 11.0 H 10.5 H White Blood Count 4.4 L Red Blood Count 3.91 L Hemoglobin 12.9 Hematocrit 39.7 Mean Corpuscular Volume 101.5 H Mean Corpuscular Hemoglobin 33.0 Mean Corpuscular Hemoglobin Concent 32.5 Red Cell Distribution Width 12.6 Platelet Count 181 Mean Platelet Volume 10.7 H Neutrophils % 54.9 Lymphocytes % 29.8 Monocytes % 11.7 H Eosinophils % 2.0 Basophils % 1.4 Nucleated Red Blood Cells % 0.0 Neutrophils # 2.4 Lymphocytes # 1.3 Monocytes # 0.5 Eosinophils # 0.1 Basophils # 0.1 Nucleated Red Blood Cells # 0.0 Total Bilirubin 0.6 Direct Bilirubin 0.00 Indirect Bilirubin 0.6 Aspartate Amino Transf (AST/SGOT) 148 H Alanine Aminotransferase (ALT/SGPT) 166 H Alkaline Phosphatase 106 Total Protein 6.6 Albumin 3.3 Globulin 3.30 H Albumin/Globulin Ratio 1.00 Medications Medications Current Medications Amlodipine Besylate (Norvasc) 5 mg DAILY PO Last administered on 01/14/17 09: 14; Admin Dose 5 MG; Start 01/07/17 at 09:00 Aspirin (Halfprin) 81 mg DAILY PO Last administered on 01/13/17 10:31; Admin Dose 81 MG; Start 01/07/17 at 09:00 Carvedilol (Coreg) 12.5 mg BID PO Last administered on 01/14/17 09:15; Admin Dose 12.5 MG; Start 01/06/17 at 21:00 Furosemide (Lasix) 20 mg DAILY PO Last administered on 01/14/17 09:16; Admin Dose 20 MG; Start 01/07/17 at 09:00 Lisinopril (Zestril) 20 mg DAILY PO Last administered on 01/14/17 09:14; Admin Dose 20 MG; Start 01/07/17 at 09:00 Metoclopramide HCl (Reglan) 10 mg Q6 IV Last administered on 01/14/17 06:16; Admin Dose 10 MG; Start 01/07/17 at 12:00 Hydralazine HCl (Apresoline) 10 mg Q4H PRN IV ELEVATED SYSTOLIC BP Last administered on 01/14/17 06:17; Admin Dose 10 MG; Start 01/10/17 at 21:30 Morphine Sulfate 3 mg 3 mg Q4H PRN IV PAIN; Start 01/10/17 at 21:30 Dextrose/Sodium Chloride (D5-1/2ns) 1,000 ml @ 75 mls/hr [id number] IV Last administered on 01/13/17t 22:51; Admin Dose 75 MLS/HR; Start 01/13/17 at 07:00 Hydralazine HCl (Apresoline) 10 mg Q8 PO ; Start 01/13/17 at 22:30 FELIPA LOPEZ Jan 14, 2017 11:17
--- NOTE | 2017-01-14 12:01 | PN ---
Date/Time of Note Date/Time of Note DATE: 01/14/17 TIME: 11:59 Assessment/Plan Lines/Catheters IV Catheter Type (from [email or web address] Peripheral IV Odonnell in Place (from [facility] [[email or web address] No Assessment/Plan Chief Complaint/Hosp Course 1. Leaking GCF: minimal drainage with continuous feeding; stoma decreasing in size: s/p excisional debridement with chemical cautery; continues to leak -surgical repair of gcf 2. Peristomal maceration: improved -local care for stoma 3. Dysphagia with TF -as above -aspiration precautions 4. History of cva -supportive and medical optimization Thank you, Problems: Subjective 24 Hr Interval Summary Min leaking from previous peg site- however nothing per gtube. No c/o abdominal pain, new leaks, sob, congested cough, n/v/d/dysuria. No cp/sob. No bloating. Bowel function. Exam/Review of Systems Vital Signs Vitals Vital Signs Date Time Temp Pulse Resp B/P Pulse Ox O2 Delivery O2 Flow Rate FiO2 01/14/17 07:55 97.6 74 16 139/65 95 01/10/17 22:00 Room Air Intake and Output 01/13/17 01/13/17 01/14/17 15:00 23:00 07:00 Intake Total 1000 ml 450 ml Balance 1000 ml 450 ml Exam Free Text/Dictation Constitutional: alert, other (nonverbal, tracks) Psych: nl mood/affect Head: atraumatic, normocephalic Eyes: nl lids, nl sclera ENMT: mucosa pink and moist, nl nasal mucosa & septum Neck: non-tender, supple Respiratory: normal air movement Cardiovascular: regular rate and rhythm Gastrointestinal: non-tender, other (previous gcf with min drainage; peristoma with erythema and macerated skin-improving with barrier cream; peg), soft Genitourinary - Female: nl external genitalia Musculoskeletal: nl extremities to inspection Extremities: normal pulses Neurological: No nl strength (right sided weakness) Results Result Diagram: 01/14/17 0510 01/14/17 0510 AVNI CLINE MD Jan 14, 2017 12:01
[2017-01-14] MEDS ORDERED: BUPIVACAINE 0.5%/EPI (SDV) 30 ML INJ ONE (14:31)
[2017-01-14] MEDS ORDERED: LIDOCAINE 1% (MPF) 30 ML INJ ONE (14:31)
[2017-01-14] MEDS ORDERED: MIDAZOLAM 1 MG/ML 2 ML INJ ONE (15:27)
[2017-01-14] MEDS ORDERED: FENTAnyl 50 MCG/ML VIAL ONE (15:27)
[2017-01-14] MEDS ORDERED: PHENYLephrine (100 MCG/ML) 5ML SYG ONE (15:48)
[2017-01-14] MEDS ORDERED: ROCURONIUM 50 MG INJ ONE (16:33)
[2017-01-14] MEDS ORDERED: LIDOCAINE 2% (SDV) 5 ML INJ ONE (16:33)
[2017-01-14] MEDS ORDERED: NEOSTIGMINE 3 MG/3 ML SYRINGE ONE (16:33)
[2017-01-14] MEDS ORDERED: GLYCOPYRROLATE 0.4 MG INJ ONE (16:33)
[2017-01-14] MEDS ORDERED: ETOMIDATE 20 MG INJ ONE (16:33)
[2017-01-14] MEDS ORDERED: ONDANSETRON 4 MG INJ ONE (16:34)
[2017-01-14] MEDS ORDERED: CEFAZOLIN 1 GM INJ ONE (16:53)
--- NOTE | 2017-01-14 17:21 | OPR ---
Date/Time of Note Date/Time of Note DATE: 01/14/17 TIME: 17:14 Operative Report Procedure Date: Jan 14, 2017 Preoperative Diagnosis 1. Persistent gastrocutaneous fistula 2. Need for tube feeds for nutrition Postoperative Diagnosis 1. Persistent gastrocutaneous fistula 2. Need for tube feeds for nutrition 3. Ventral hernia Operation/Procedure Performed 1. Excision of gastrocutaneous fistula 2. Partial gastrectomy 3. Repair of ventral hernia 4. Esophagogastroduodenoscopy (EGD) 5. Local anesthetic injection, [id number] Surgeon Darvin Alfaro MD Rotogravure Press Operator None Anesthesia Type: general (And local) Anesthesiologist: VICKY ROSAS MD Estimated Blood Loss: 0 - 10 ml's Transfusion none Specimen Gastrocutaneous fistula Stomach Grafts/Implants none Tubes/Drains None Complications none Pt Condition Post Procedure: stable Disposition: PACU Indications Per notes. Risks include but are not limited to bleeding, infection, abscess, seroma, leak , damage to intestines or any intra-abdominal/intrapelvic structures, hernia formation, chronic pain, need for re-operations or further surgeries, SD, stroke , PE, DVT, pneumonia, organ failures, or even . Procedure Description Patient was brought in and placed supine in the operating table. All pressure points were well-padded. SCDs were placed. Preoperative antibiotics administered. Patient was prepped and draped in usual sterile fashion. Timeout was performed. Gastrocutaneous fistula was identified and an elliptical incision was made in the horizontal plane around the opening of it. Incision was extended down to fascia the stomach from the fascia. I identified the hernia at this site. After stomach was fully mobilized from the fascia the gastrocutaneous fistula and part of the stomach were exteriorized and at this point using TRINITY blue load 60 stapler the stomach was transected including the gastrocutaneous fistula. There was complete hemostasis. The staple line was closed with 2-0 silk Lembert running suture. The stomach was sutured to the abdominal wall in 4 quadrants to keep it secure and decrease leak rate. Ventral hernia was closed with multiple interrupted #1 Vicryl sutures in a [id number] manner. Wound was irrigated and closed with Vicryl subcutaneous [id number] interrupted followed by skin bhaskar. Dressing was applied. Endoscopy was performed without difficulty and the staple line was identified without any active bleeding. No air leakage. Feeding tube is also intact and in good position. Endoscope was removed. Patient was extubated transferred to recovery in stable condition and all counts were correct at the end of the operation 2. Copies To: CC: FELIPA LOPEZ; SCAR GRIGGS MD; HÉCTOR BRYANT MD, SAMUEL MD Jan 14, 2017 17:21
[2017-01-14] MEDS ORDERED: POTASSIUM CHLORIDE (SR) 20 MEQ TAB PO ONE (22:34)
[2017-01-15] MEDS: METOCLOPRAMIDE 10 MG INJ IV SCH ×4 (00:24→17:55)
[2017-01-15 02:00] VITALS: BP 135/60; RESP 20
[2017-01-15 06:05] LABS: BASOPHILS % 0.6 % (0.0-2.0); EOSINOPHILS # 0.1 10^3/ul (0.0-0.5); EOSINOPHILS % 0.7 % (0.0-7.0); HEMATOCRIT 37.9 % (37.0-47.0); HEMOGLOBIN 12.1 g/dl (12.0-16.0); LYMPHOCYTES # 0.9 10^3/ul (0.8-2.9); MEAN CORPUSCULAR HEMOGLOBIN 32.3 pg (29.0-33.0); MEAN CORPUSCULAR HGB CONC 31.9 g/dl (32.0-37.0); MEAN CORPUSCULAR VOLUME 101.1 fl (82.0-101.0); MEAN PLATELET VOLUME 10.9 fl (7.4-10.4); MONOCYTE # 0.7 10^3/ul (0.3-0.9); MONOCYTES % 10.3 % (0.0-11.0); NEUTROPHILS % 74.3 % (39.0-77.0); PLATELET COUNT 164 10^3/UL (140-415); RED BLOOD COUNT 3.75 10^6/ul (4.20-5.40); RED CELL DISTRIBUTION WIDTH 12.5 % (11.5-14.5); WHITE BLOOD COUNT 6.7 10^3/ul (4.8-10.8)
[2017-01-15] MEDS: DEXTROSE 5%-0.45% NACL 1,000 ML IV SCH (06:11)
[2017-01-15 06:37] LABS: ALBUMIN 2.9 g/dl (3.3-4.9); ALBUMIN/GLOBULIN RATIO 0.96; CALCIUM 9.7 mg/dl (8.4-10.2); CREATININE 0.69 mg/dl (0.44-1.00); POTASSIUM 3.2 mmol/L (3.5-5.1); TOTAL PROTEIN 5.9 g/dl (6.1-8.1)
[2017-01-15 08:28] VITALS: BP 130/83; RESP 20
--- NOTE | 2017-01-15 08:52 | PN ---
Date/Time of Note Date/Time of Note DATE: 01/15/17 TIME: 08:50 Assessment/Plan VTE Prophylaxis VTE Prophylaxis Intervention: SCD's Lines/Catheters IV [facility] (from [facility]): Peripheral IV Urinary Cath still in place: No Assessment/Plan Chief Complaint/Hosp Course Assessment/Plan: 81 yo F with PEG for dysphagia from prior strokes, here for PEG replacement. Aperture from former PEG site with sanguinous drainage now improving/closing up on its own. PLAN GI and gen surg following, had second debridement performed yesterday, no leakage noted presently. Continue current G-tube feeds, follow-up post procedure recommendations Suspect erythematous patch 2/2 irritation from previous PEG. Improved. No compelling indication for broader abx at this time. Follow-up surgery recommendations Dyspnea: Likely home when cleared by surgery team Problems: Subjective 24 Hr Interval Summary Free Text/Dictation Patient had debridement surgery performed yesterday by surgery team, per nursing staff no leakage through the surgical site this morning, tolerating PEG feeds. No acute events overnight. Exam/Review of Systems Vital Signs Vitals Vital Signs Date Time Temp Pulse Resp B/P Pulse Ox O2 Delivery O2 Flow Rate FiO2 01/15/17 08:28 98.6 71 20 130/83 95 01/14/17 17:42 Nasal Cannula 2.0 Intake and Output 01/14/17 01/14/17 01/15/17 15:00 23:00 07:00 Intake Total 1325 ml 1150 ml Output Total 25 ml Balance 1300 ml 1150 ml Exam nad no mrg lungs clear abd soft no rashes PEG tube noted, no leakage from old PEG site Results Result Diagram: 01/15/1717 01/15/1717 Results 24 hrs Laboratory Tests Test 01/15/17 05:17 White Blood Count 6.7 # Red Blood Count 3.75 L Hemoglobin 12.1 Hematocrit 37.9 Mean Corpuscular Volume 101.1 H Mean Corpuscular Hemoglobin 32.3 Mean Corpuscular Hemoglobin Concent 31.9 L Red Cell Distribution Width 12.5 Platelet Count 164 Mean Platelet Volume 10.9 H Neutrophils % 74.3 Lymphocytes % 14.0 L Monocytes % 10.3 Eosinophils % 0.7 Basophils % 0.6 Nucleated Red Blood Cells % 0.0 Neutrophils # 5.0 Lymphocytes # 0.9 Monocytes # 0.7 Eosinophils # 0.1 Basophils # 0.0 Nucleated Red Blood Cells # 0.0 Sodium Level 145 H Potassium Level 3.2 L Chloride Level 107 Carbon Dioxide Level 34 H Anion Gap 7 L Blood Urea Nitrogen 27 #H Creatinine 0.69 Glucose Level 155 Calcium Level 9.7 Total Bilirubin 1.0 Direct Bilirubin 0.00 Indirect Bilirubin 1.0 Aspartate Amino Transf (AST/SGOT) 163 H Alanine Aminotransferase (ALT/SGPT) 188 H Alkaline Phosphatase 103 Total Protein 5.9 L Albumin 2.9 L Globulin 3.00 Albumin/Globulin Ratio 0.96 Medications Medications Current Medications Amlodipine Besylate (Norvasc) 5 mg DAILY PO Last administered on 01/14/17 09: 14; Admin Dose 5 MG; Start 01/07/17 at 09:00 Aspirin (Halfprin) 81 mg DAILY PO Last administered on 01/13/17 10:31; Admin Dose 81 MG; Start 01/07/17 at 09:00 Carvedilol (Coreg) 12.5 mg BID PO Last administered on 01/14/17 22:05; Admin Dose 12.5 MG; Start 01/06/17 at 21:00 Furosemide (Lasix) 20 mg DAILY PO Last administered on 01/14/17 09:16; Admin Dose 20 MG; Start 01/07/17 at 09:00 Lisinopril (Zestril) 20 mg DAILY PO Last administered on 01/14/17 09:14; Admin Dose 20 MG; Start 01/07/17 at 09:00 Metoclopramide HCl (Reglan) 10 mg Q6 IV Last administered on 01/15/17 06:01; Admin Dose 10 MG; Start 01/07/17 at 12:00 Hydralazine HCl (Apresoline) 10 mg Q4H PRN IV ELEVATED SYSTOLIC BP Last administered on 01/14/17 06:17; Admin Dose 10 MG; Start 01/10/17 at 21:30 Morphine Sulfate 3 mg 3 mg Q4H PRN IV PAIN; Start 01/10/17 at 21:30 Dextrose/Sodium Chloride (D5-1/2ns) 1,000 ml @ 75 mls/hr [id number] IV Last administered on 01/15/17 06:11; Admin Dose 75 MLS/HR; Start 01/13/17 at 07:00 Hydralazine HCl (Apresoline) 10 mg Q8 PO Last administered on 01/15/17t 06:04 ; Admin Dose 10 MG; Start 01/13/17 at 22:30 FELIPA LOPEZ Jan 15, 2017 08:52
[2017-01-15] MEDS: ASPIRIN (EC) 81 MG TAB PO SCH (09:06)
[2017-01-15] MEDS: AMLODIPINE 5 MG TAB PO SCH (09:09)
[2017-01-15] MEDS: FUROSEMIDE 20 MG TAB PO SCH (09:09)
[2017-01-15] MEDS: LISINOPRIL 20 MG TAB PO SCH (09:09)
--- NOTE | 2017-01-15 14:01 | PN ---
Date/Time of Note Date/Time of Note DATE: 01/15/17 TIME: 13:58 Assessment/Plan VTE Prophylaxis VTE Prophylaxis Intervention: SCD's Lines/Catheters IV C[facility]ter Type (from [facility] Peripheral IV Urinary Cath still in place: No Assessment/Plan Chief Complaint/Hosp Course Assessment: Post removal of malfunctioning gastrostomy tube Persistent leakage from ostomy site- resolved at this time S/p surgical intervention 01/14 Probably mild local cellulitis/appears to be resolved Post placement of new gastrostomy tube History of CVA Expressive aphasia Dysphagia/GT enteral nutrition dependent Plan: S/p surgical intervention to repair previous ostomy site Continue tube feeding Once leakage controlled, cleared from GI point of view Patient seen in collaboration with Dr. Greene Subjective: Course reviewed with nursing staff Patient interviewed and examined All labs, imaging and other results reviewed The patient resting well S/p debridement and chemical cautery 01/11 S/p surgical intervention yesterday- pt beatrice well Nurse reports no leakage since surgery No complaints at this time Exam: General: well developed, well nourished, alert and oriented x3 , in no acute distress Skin: No lesions, no stigmata chronic liver disease, no evidence of bleeding diathesis, previous ostomy closed with surgical intervention Lymphatic: No palpable lymphadenopathy HEENT: No lesions Cardiovascular: Heart: Regular rate and rhythm, no murmurs, gallops or rubs. Peripheral pulses present within normal limits, no cyanosis, clubbing or edemas. No pulsatile abdominal mass Respiratory: Lungs clear to auscultation and percussion, no wheezing, no rubs Gastrointestinal and Liver: Abdomen: Old ostomy site improved. New GT in place. Abdomen soft, non tenderness, not distended, no hernias, no masses, no organomegaly, no ascites, no guarding, no rebound tenderness, normoactive bowel sounds. Extremities: No cyanosis, clubbing, or edema. Diagnostic Studies: Available data and images were reviewed personally. See reports. Significant results and findings are addressed here or in the assessment and plan. Problems: Exam/Review of Systems Vital Signs Vitals Vital Signs Date Time Temp Pulse Resp B/P Pulse Ox O2 Delivery O2 Flow Rate FiO2 01/15/17 08:28 98.6 71 20 130/83 95 01/14/17 17:42 Nasal Cannula 2.0 Intake and Output 01/14/17 01/14/1717 15:00 23:00 07:00 Intake Total 1325 ml 1150 ml Output Total 25 ml Balance 1300 ml 1150 ml Results Result Diagram: 01/15/1717 01/15/17 0517 Results 24 hrs Laboratory Tests Test 01/15/17 05:17 White Blood Count 6.7 # Red Blood Count 3.75 L Hemoglobin 12.1 Hematocrit 37.9 Mean Corpuscular Volume 101.1 H Mean Corpuscular Hemoglobin 32.3 Mean Corpuscular Hemoglobin Concent 31.9 L Red Cell Distribution Width 12.5 Platelet Count 164 Mean Platelet Volume 10.9 H Neutrophils % 74.3 Lymphocytes % 14.0 L Monocytes % 10.3 Eosinophils % 0.7 Basophils % 0.6 Nucleated Red Blood Cells % 0.0 Neutrophils # 5.0 Lymphocytes # 0.9 Monocytes # 0.7 Eosinophils # 0.1 Basophils # 0.0 Nucleated Red Blood Cells # 0.0 Sodium Level 145 H Potassium Level 3.2 L Chloride Level 107 Carbon Dioxide Level 34 H Anion Gap 7 L Blood Urea Nitrogen 27 #H Creatinine 0.69 Glucose Level 155 Calcium Level 9.7 Total Bilirubin 1.0 Direct Bilirubin 0.00 Indirect Bilirubin 1.0 Aspartate Amino Transf (AST/SGOT) 163 H Alanine Aminotransferase (ALT/SGPT) 188 H Alkaline Phosphatase 103 Total Protein 5.9 L Albumin 2.9 L Globulin 3.00 Albumin/Globulin Ratio 0.96 Medications Medications Current Medications Amlodipine Besylate (Norvasc) 5 mg DAILY PO Last administered on 01/15/17 09: 09; Admin Dose 5 MG; Start 01/07/17 at 09:00 Aspirin (Halfprin) 81 mg DAILY PO Last administered on 01/15/17 09:06; Admin Dose 81 MG; Start 01/07/17 at 09:00 Carvedilol (Coreg) 12.5 mg BID PO Last administered on 01/15/17 09:10; Admin Dose 12.5 MG; Start 01/06/17 at 21:00 Furosemide (Lasix) 20 mg DAILY PO Last administered on 01/15/17 09:09; Admin Dose 20 MG; Start 01/07/17 at 09:00 Lisinopril (Zestril) 20 mg DAILY PO Last administered on 01/15/17 09:09; Admin Dose 20 MG; Start 01/07/17 at 09:00 Metoclopramide HCl (Reglan) 10 mg Q6 IV Last administered on 01/15/17 12:22; Admin Dose 10 MG; Start 01/07/17 at 12:00 Hydralazine HCl (Apresoline) 10 mg Q4H PRN IV ELEVATED SYSTOLIC BP Last administered on 01/14/17 06:17; Admin Dose 10 MG; Start 01/10/17 at 21:30 Morphine Sulfate (morphine) 3 mg Q4H PRN IV PAIN; Start 01/10/17 at 21:30 Hydralazine HCl (Apresoline) 10 mg Q8 PO Last administered on 01/15/17 06:04 ; Admin Dose 10 MG; Start 01/13/17 at 22:30 JAVI GREER Jan 15, 2017 14:01
[2017-01-15 15:13] VITALS: BP 152/68; RESP 18
[2017-01-15 19:46] VITALS: BP 145/63; RESP 20
--- NOTE | 2017-01-15 23:23 | PN ---
Date/Time of Note Date/Time of Note DATE: 01/15/17 TIME: 23:21 Assessment/Plan Lines/Catheters IV Catheter Type (from [facility]): Peripheral IV Odonnell in Place (from [facility]): No Assessment/Plan Chief Complaint/Hosp Course 1. Leaking GCF: Status post gastrocutaneous fistula 01/14 -Monitor 2. Peristomal maceration: improved -local care for stoma 3. Dysphagia with TF -as above -aspiration precautions 4. History of cva -supportive and medical optimization 5. Transaminitis likely secondary to liver disease -monitor Thank you, Problems: Subjective 24 Hr Interval Summary s/p closure of gastrocutaneous fistula 01/14. No leaking. No abdominal pain, new leaks, sob, congested cough, n/v/d/dysuria. No cp/sob. No bloating. Bowel function. Exam/Review of Systems Vital Signs Vitals Vital Signs Date Time Temp Pulse Resp B/P Pulse Ox O2 Delivery O2 Flow Rate FiO2 01/15/17 19:46 99.1 79 20 145/63 92 01/14/17 17:42 Nasal Cannula 2.0 Intake and Output 01/14/17 01/14/17 01/15/17 15:00 23:00 07:00 Intake Total 1325 ml 1150 ml Output Total 25 ml Balance 1300 ml 1150 ml Exam Free Text/Dictation Constitutional: alert, other (nonverbal, tracks) Psych: nl mood/affect Head: atraumatic, normocephalic Eyes: nl lids, nl sclera ENMT: mucosa pink and moist, nl nasal mucosa & septum Neck: non-tender, supple Respiratory: normal air movement Cardiovascular: regular rate and rhythm Gastrointestinal: min-tender, soft, PEG, bhaskar Genitourinary - Female: nl external genitalia Musculoskeletal: nl extremities to inspection Extremities: normal pulses Neurological: No nl strength (right sided weakness) Lymphatics: Nonpalpable inguinal or cervical Results Result Diagram: 01/15/1751601/15/17516 AVNI CLINE MD Jan 15, 2017 23:23
[2017-01-16] MEDS: METOCLOPRAMIDE 10 MG INJ IV SCH ×4 (00:23→18:00)
[2017-01-16 02:00] VITALS: BP 133/61; RESP 20
[2017-01-16 05:57] LABS: BASOPHILS % 0.7 % (0.0-2.0); EOSINOPHILS # 0.1 10^3/ul (0.0-0.5); EOSINOPHILS % 1.3 % (0.0-7.0); HEMATOCRIT 37.1 % (37.0-47.0); HEMOGLOBIN 12.2 g/dl (12.0-16.0); LYMPHOCYTES # 1.2 10^3/ul (0.8-2.9); LYMPHOCYTES % 20.7 % (15.0-51.0); MEAN CORPUSCULAR HGB CONC 32.9 g/dl (32.0-37.0); MEAN CORPUSCULAR VOLUME 100.3 fl (82.0-101.0); MEAN PLATELET VOLUME 11.3 fl (7.4-10.4); MONOCYTE # 0.7 10^3/ul (0.3-0.9); MONOCYTES % 11.2 % (0.0-11.0); NEUTROPHIL # 3.9 10^3/ul (1.6-7.5); NEUTROPHILS % 65.8 % (39.0-77.0); PLATELET COUNT 155 10^3/UL (140-415); RED CELL DISTRIBUTION WIDTH 12.4 % (11.5-14.5)
[2017-01-16 06:17] LABS: ALBUMIN 2.6 g/dl (3.3-4.9); BILIRUBIN,INDIRECT 0.5 mg/dl (0-1.1); BILIRUBIN,TOTAL 0.5 mg/dl (0.2-1.3); TOTAL PROTEIN 5.9 g/dl (6.1-8.1)
[2017-01-16 08:01] VITALS: BP 152/67; RESP 18
[2017-01-16] MEDS: LISINOPRIL 20 MG TAB PO SCH (09:40)
[2017-01-16] MEDS: AMLODIPINE 5 MG TAB PO SCH (09:40)
[2017-01-16] MEDS: ASPIRIN (EC) 81 MG TAB PO SCH (09:40)
[2017-01-16] MEDS: FUROSEMIDE 20 MG TAB PO SCH (09:41)
--- NOTE | 2017-01-16 12:09 | DS ---
Date/Time of Note Date/Time of Note DATE: 01/16/17 TIME: 12:09 Discharge Summary Admission/Discharge Info Admit Date/Time Jan 06, 2017 at 16:47 Discharge Date/Time Discharge Diagnosis iatrogenic gastrocutaneous fistula Patient Condition: Stable Consults GI, general surgery Procedures 10.10 Operation/Procedure Performed Excisional debridement of gastrocutaneous fistula 10.14 Operation/Procedure Performed 1. Excision of gastrocutaneous fistula 2. Partial gastrectomy 3. Repair of ventral hernia 4. 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 10.4 PEG pulled and new one placed endoscopically. Pt discharged 10.5 (yesterday). Today pt brought back in. Daughter states that she went to use new PEG this morning to give pt breakfast. Noted after she started pushing in AM tube feeds they appeared to be coming out of prior PEG opening. Thus she brought pt back to the ER. pt aphasic thus unable to provide PMHx, PSHx, Soc Hx, ROS, Fam Hx Hospital Course Pt admitted for leaking from previous PEG site. Seen by GI and gen surg. New PEG functioning well. Pt had 2 debridement of previous PEG site, wound site was stapled 01.14. Pt discharged home with outpatient f/u Home Meds Reported Medications Furosemide* (Lasix*) 20 Mg Tablet, 20 MG PO DAILY, TAB 01/06/17 Lisinopril* (Lisinopril*) 20 Mg Tablet, 20 MG PO DAILY, #30 TAB 01/06/17 Amlodipine Besylate* (Norvasc*) 5 Mg Tablet, 5 MG PO DAILY, TAB 12/12/15 Carvedilol* (Coreg*) 12.5 Mg Tablet, 12.5 MG PO BID, #60 TAB 12/12/15 Aspirin* (Aspirin* EC) 81 Mg Tablet.dr, 81 MG PO DAILY, TAB 12/12/15 Follow-up Plan [facility] in 1w for staple removal Primary Care Provider Carolyn Moore Time spent on discharge: > 30 minutes Pending Labs Laboratory Tests Test 01/16/17 05:25 White Blood Count 6.010^3/ul (4.8-10.8) Red Blood Count 3.7010^6/ul (4.20-5.40) Hemoglobin 12.2g/dl (12.0-16.0) Hematocrit 37.1% (37.0-47.0) Mean Corpuscular Volume 100.3fl (82.0-101.0) Mean Corpuscular Hemoglobin 33.0pg (29.0-33.0) Mean Corpuscular Hemoglobin Concent 32.9g/dl (32.0-37.0) Red Cell Distribution Width 12.4% (11.5-14.5) Platelet Count 92775^3/UL (140-415) Mean Platelet Volume 11.3fl (7.4-10.4) Neutrophils % 65.8% (39.0-77.0) Lymphocytes % 20.7% (15.0-51.0) Monocytes % 11.2% (0.0-11.0) Eosinophils % 1.3% (0.0-7.0) Basophils % 0.7% (0.0-2.0) Nucleated Red Blood Cells % 0.0/100WBC (0.0-0.0) Neutrophils # 3.910^3/ul (1.6-7.5) Lymphocytes # 1.210^3/ul (0.8-2.9) Monocytes # 0.710^3/ul (0.3-0.9) Eosinophils # 0.110^3/ul (0.0-0.5) Basophils # 0.010^3/ul (0.0-0.1) Nucleated Red Blood Cells # 0.010^3/ul (0.0-0.0) Total Bilirubin 0.5mg/dl (0.2-1.3) Direct Bilirubin 0.00mg/dl (0.00-0.20) Indirect Bilirubin 0.5mg/dl (0-1.1) Aspartate Amino Transf (AST/SGOT) 77IU/L (15-46) Alanine Aminotransferase (ALT/SGPT) 144IU/L (13-69) Alkaline Phosphatase 114IU/L (42-121) Total Protein 5.9g/dl (6.1-8.1) Albumin 2.6g/dl (3.3-4.9) Copies To: CC: AVNI CLINE MD, ELLEN MD Jan 16, 2017 12:09 SCAR GRIGGS MD Jan 16, 2017 12:09
--- NOTE | 2017-01-16 12:18 | PDOCDIS ---
Discharge Instructions DIAGNOSIS Discharge Diagnosis iatrogenic gastrocutaneous fistula CONDITION Patient Condition: Stable HOME CARE INSTRUCTIONS: Special Diet: GT feeding FOLLOW UP/APPOINTMENTS Follow-up Plan [facility] in 1w for staple removal with Dr Alfaro (wound clinic): [phone] SCAR GRIGGS MD Jan 16, 2017 12:18
[2017-01-16 14:21] VITALS: BP 139/61; RESP 18
--- NOTE | 2017-01-16 14:24 | PN ---
Date/Time of Note Date/Time of Note DATE: 01/16/17 TIME: 14:18 Assessment/Plan Lines/Catheters IV Catheter Type (from [facility]): Saline Lock Odonnell in Place (from [facility]): No Assessment/Plan Chief Complaint/Hosp Course 1. Leaking GCF: Status post gastrocutaneous fistula repair 01/14 -Monitor 2. Peristomal maceration: improved -local care for stoma 3. Dysphagia with TF -as above -aspiration precautions 4. History of cva -supportive and medical optimization 5. Transaminitis likely secondary to liver disease: improving -monitor Thank you. Patient seen and examined in collaboration with Dr. Darvin Alfaro. Problems: Subjective 24 Hr Interval Summary Awake. No drainage from gcf. No fevers, chills, sob, congested cough, n/v/d/ dysuria, carmona, dizziness, cp, palpitation. Tolerating tf. Exam/Review of Systems Vital Signs Vitals Vital Signs Date Time Temp Pulse Resp B/P Pulse Ox O2 Delivery O2 Flow Rate FiO2 01/16/17 08:01 99.2 89 18 152/67 92 01/14/17 17:42 Nasal Cannula 2.0 Intake and Output 01/15/17 01/15/17 01/16/17 15:00 23:00 07:00 Intake Total 400 ml 660 ml 660 ml Balance 400 ml 660 ml 660 ml Exam Free Text/Dictation Constitutional: alert, other (nonverbal, tracks) Psych: nl mood/affect Head: atraumatic, normocephalic Eyes: nl lids, nl sclera ENMT: mucosa pink and moist, nl nasal mucosa & septum Neck: non-tender, supple Respiratory: normal air movement Cardiovascular: regular rate and rhythm Gastrointestinal: min-tender, soft, PEG, gcf with bhaskar-no drainage Genitourinary - Female: nl external genitalia Musculoskeletal: nl extremities to inspection Extremities: normal pulses Neurological: No nl strength (right sided weakness) Lymphatics: Nonpalpable inguinal or cervical Results Result Diagram: 01/16/17 0525 01/15/17 0517 OMID VACA NP Jan 16, 2017 14:24
== END 2017-01-16 18:48 | disposition home or self-care (01) | DRG 327 ==
LOC: E/R 12:10 → MS2 16:47
PROVIDERS: ADMIT Internal Medicine; ATTEND Internal Medicine
PROC: 0JB80ZZ Excision of Abdomen Subcutaneous Tissue and Fascia, Open Approach (ICD-10-PCS; 2017-01-10)
PROC: 0WQF0ZZ Repair Abdominal Wall, Open Approach (ICD-10-PCS; 2017-01-14)
PROC: 0DJ08ZZ Inspection of Upper Intestinal Tract, Via Natural or Artificial Opening Endoscopic (ICD-10-PCS; 2017-01-14)
PROC: 0DB60ZZ Excision of Stomach, Open Approach (ICD-10-PCS; principal; 2017-01-14 12:00)
DX: K94.29 Other complications of gastrostomy (principal); L03.311 Cellulitis of abdominal wall; K31.6 Fistula of stomach and duodenum; I69.320 Aphasia following cerebral infarction; K94.22 Gastrostomy infection; I69.391 Dysphagia following cerebral infarction; Z79.82 Long term (current) use of aspirin; I10 Essential (primary) hypertension; R13.10 Dysphagia, unspecified; R74.0 Nonspecific elevation of levels of transaminase and lactic acid dehydrogenase [LDH]; K43.9 Ventral hernia without obstruction or gangrene; Y83.3 Surgical operation with formation of external stoma as the cause of abnormal reaction of the patient, or of later complication, without mention of misadventure at the time of the procedure
CPT/HCPCS: 36415; 71010; 80048; 80053; 80076; 83605; 83690; 85025; 85610; 86850; 86900; 86901; 86920; 87040; 87081; 88304; 93005; 96374; J0360; J0690; J2250; J2370; J2405; J2543; J2710; J2765; J3010; J3370; J7042

== ENCOUNTER 2017-02-03 10:55 | Emergency (ER) | payer MEDICARE, OTHER ==
[~2017-02-03] VITALS: Ht 152.4 cm; Wt 60.0 kg
[~2017-02-03 10:55] MED LIST changes: -CEPH500C PO; +FURO-110 PO; +LISI20TA11 PO; -LISI30TA47 PO
[2017-02-03 10:57] VITALS: Ht 152.4 cm; Wt 60.0 kg
--- NOTE | 2017-02-03 12:55 | ERD ---
ER Documentation Chief Complaint Chief Complaint G TUBE REPLACEMENT HPI 81-year-old female comes in with her daughter for a clogged feeding tube. The feeding tube was recently placed on a nearby hole got too big. Has had feeding tubes for 4 years. The daughter states that she forgot to flush it and noticed in the shower this morning it was clogged. She tried to flush it with soda water but this did not clearly clogged. Has been no bleeding or any problems at the site. ROS All systems reviewed and are negative except as per history of present illness. Medications Home Meds Reported Medications Furosemide* (Lasix*) 20 Mg Tablet, 20 MG PO DAILY, TAB 01/06/17 Lisinopril* (Lisinopril*) 20 Mg Tablet, 20 MG PO DAILY, #30 TAB 01/06/17 Amlodipine Besylate* (Norvasc*) 5 Mg Tablet, 5 MG PO DAILY, TAB 12/12/15 Carvedilol* (Coreg*) 12.5 Mg Tablet, 12.5 MG PO BID, #60 TAB 12/12/15 Aspirin* (Aspirin* EC) 81 Mg Tablet.dr, 81 MG PO DAILY, TAB 12/12/15 Allergies Allergies: Coded Allergies: No Known Drug Allergies (Verified Allergy, Unknown, 02/03/17) PMhx/Soc History of Surgery: Yes (tube placement) Anesthesia Reaction: No Hx Neurological Disorder: No Hx Respiratory Disorders: No Hx Cardiac Disorders: Yes (HTN) Hx Psychiatric Problems: No Hx Miscellaneous Medical Probl: No Hx Alcohol Use: No Hx Substance Use: No Hx Tobacco Use: No Physical Exam Vitals Vital Signs Date Time Temp Pulse Resp B/P Pulse Ox O2 Delivery O2 Flow Rate FiO2 02/03/17 10:57 98.0 79 18 135/95 100 Physical Exam Const: [] No distress Head: Atraumatic Eyes: Normal Conjunctiva Abd: Soft, non tender, non distended. Normal bowel sounds. Feeding tube in place and central upper abdomen. Well-healing recent incision site healing well. No discharge Skin: No petechiae or rashes, no skin breakdown Ext: No cyanosis, or edema Neur: Awake and alert Psych: Normal Mood and Affect Procedures/MDM Clogged surgical feeding tube. Attempts were made to clear the tube in the emergency room flushing. This was unsuccessful. I then replaced the feeding tube. Going to discharge instructions to see the surgeon within the next few days. Daughter verbalized understanding of these instructions. Return precautions given to the ER for any concerning change. Feeding tube replacement note: After attempts at flushing feeding tube unsuccessful. Feeding tube was removed easily with gentle traction. Sterile lubrication was used. Sterile gloves. Alcohol wipe. Size 20 Nepali feeding tube was easily inserted with no resistance after balloon was tested. Balloon was inflated to 6 cc of saline. Feeding tube was then flushed with 60 cc of sterile water with no resistance and good return of gastric contents. Patient tolerated the procedure well with no complications. Dressing in place. Departure Diagnosis: Primary Impression: Feeding tube blocked Condition: Stable Patient Instructions: Feeding Tube Replacement Additional Instructions: Call your feeding tube surgeon for an appointment during the next 2-3 days.See the doctor sooner or return here if your condition worsens before your appointment time. DAVID KILGORE DO Feb 03, 2017 12:55
[2017-02-03 13:09] VITALS: BP 126/105; PULSE 73; RESP 12; TEMP 98
== END 2017-02-03 13:11 | disposition home or self-care (01) ==
LOC: E/R 10:55
DX: K94.23 Gastrostomy malfunction (principal); I10 Essential (primary) hypertension; Z79.82 Long term (current) use of aspirin